=== PATIENT | male | born 1960 | race Caucasian/White ===

== ENCOUNTER 2018-11-30 09:16 | Emergency (ER) | payer MEDICAID | END 2018-11-30 10:20 | disposition left against medical advice (07) | LOC: JD.ED 09:16 | DX: Z53.21 Procedure and treatment not carried out due to patient leaving prior to being seen by health care provider (principal) ==

== ENCOUNTER 2019-01-10 06:16 | Emergency (ER) | payer MEDICAID ==
[2019-01-10] MEDS ORDERED: Sodium Chloride 0.9% 10 ML Syringe FLUSH PRN ×2 (07:12→07:20)
[2019-01-10] MEDS ORDERED: Iopamidol 612 MG/ML 50 ML SDV IVPUSH ONE (07:20)
[2019-01-10] MEDS ORDERED: Acetaminophen 325 MG Tab PO ONE (07:21)
--- NOTE | 2019-01-10 08:05 | CT ---
Head CT Technique: Multiple axial sections through the brain were obtained. Intravenous contrast was not utilized. Comparison: No previous intracranial imaging is seen. Findings: Ventricles along with basal cisterns and sulci over the convexities are mildly prominent. No abnormal parenchymal densities are seen. No evidence of intracranial hemorrhage. No midline shift or mass effect is seen. Bone window settings were reviewed which shows mild mucosal thickening within right sphenoid sinus as well as probable retention cyst within the right sphenoid sinus measuring 1.7 cm. This is most likely chronic. No air-fluid level seen within the paranasal sinuses. No acute calvarial abnormality is seen. Impression: 1. Findings within the right sphenoid sinus as noted above most likely representing chronic sinusitis. 2. Mild generalized atrophy. 3. No acute intracranial abnormality is appreciated. Diagnostic code #2
--- NOTE | 2019-01-10 08:05 | CT ---
CT facial bones Technique: Multiple axial sections were obtained centered to the orbits. Intravenous contrast was utilized. Findings: Right and left globes are symmetric. Extraocular muscles are symmetric. Optic nerves are also symmetric. No retrobulbar are abnormality is seen. Lacrimal glands are symmetric in size between right and left sides. Mild areas of mucosal thickening are seen within the right and left inferior maxillary sinuses. Probable retention cyst is noted within the inferior left maxillary sinus measuring 1.5 cm. Mild mucosal thickening is seen within the right sphenoid sinus with probable retention cyst. Mastoid sinuses are clear. No fluid is seen within the paranasal sinuses. No adenopathy is appreciated. No acute fracture or other bony abnormality is appreciated. Impression: 1. Chronic appearing sinus findings as described above. 2. Nothing acute is appreciated on CT study of the facial bones. Diagnostic code #2
--- NOTE | 2019-01-10 09:17 | EDM.PDOC ---
ED HPI GENERAL MEDICAL PROBLEM - General Chief Complaint: Eye Problems Stated Complaint: R EYE PAIN Time Seen by Provider: 01/10/19 06:57 Source of Information: Reports: Patient, RN Notes Reviewed - History of Present Illness INITIAL COMMENTS - FREE TEXT/NARRATIVE: 58 year old male with Vazquez and R retroorbital eye discomfort that started 2 days ago, awakened him early this morning from sleep. No nausea or vomiting. Has not been ill in any way. He does have light sensitivity R eye. Did take some ibuprofen a few hrs ago but states it did not help much. Does not feel he has has gotten anything into the eye. Does not regularly get headaches. Right Eye Pain Score (Numeric/FACES): 7 - Related Data Allergies Allergy/AdvReac Type Severity Reaction Status Date / Time No Known Allergies Allergy Verified 11/30/18 09:43 Home Meds: Home Meds Allopurinol [Zyloprim] 300 mg PO DAILY 08/09/18 [History] Atenolol 50 mg PO DAILY 08/09/18 [History] ClonazePAM [KlonoPIN] 0.5 mg PO BID 08/09/18 [History] Itraconazole 100 mg PO DAILY 08/09/18 [History] Lisinopril 40 mg PO DAILY 08/09/18 [History] Venlafaxine [Effexor XR] 150 mg PO DAILY 08/09/18 [History] traZODone HCl [Trazodone HCl] 100 mg PO BEDTIME 08/09/18 [History] valACYclovir HCl [Valtrex] 500 mg PO BID PRN 08/09/18 [History] Sennosides [Senna] 8.6 mg PO BID PRN tablet 08/10/18 [Rx] Cephalexin [Keflex] 500 mg PO Q6HR #30 capsule 01/10/19 [Rx] Past Medical History HEENT History: Reports: Impaired Vision Cardiovascular History: Reports: High Cholesterol, Hypertension Other Cardiovascular History: high cholesterol Respiratory History: Reports: None Gastrointestinal History: Reports: Chronic Constipation, Hemorrhoids Other Gastrointestinal History: left inguinal hernia Genitourinary History: Reports: Other (See Below) Other Genitourinary History: erectle dysfunction INFORMATION TECH History: Reports: None Other Musculoskeletal History: right hand sprain, hand fracture right Neurological History: Reports: Other (See Below) Other Neuro History: tremor hands Psychiatric History: Reports: Anxiety, Depression Other Psychiatric History: insomnia Endocrine/Metabolic History: Reports: Obesity/BMI 30+ Hematologic History: Reports: None Immunologic History: Reports: None Oncologic (Cancer) History: Reports: None Dermatologic History: Reports: Other (See Below) Other Dermatologic History: herpes, mucous cyst to finger x3, seborrheic keratosis- feet - Infectious Disease History Infectious Disease History: Reports: Herpes - Past Surgical History Head Surgeries/Procedures: Reports: None Cardiovascular Surgical History: Reports: None Respiratory Surgical History: Reports: None GI Surgical History: Reports: Colonoscopy Other GI Surgeries/Procedures: GERD sx Male Surgical History: Reports: None Endocrine Surgical History: Reports: None Neurological Surgical History: Reports: None Musculoskeletal Surgical History: Reports: Carpal Tunnel, Hip Replacement, Other (See Below) Other Musculoskeletal Surgeries/Procedures:: torn ligament repair R hand 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 Denies: Dizziness, Numbness, Tingling, Trouble Speaking, Difficulty Walking, Weakness ED EXAM GENERAL W FULL EYE - Physical Exam Exam: See Below General Appearance: Alert, No Apparent Distress Visual Acuity (R) 20/: 40 Visual Acuity (L) 20/: 25 Eyelids: Bilateral: Normal Appearance Conjunctiva & Sclera: Bilateral: Normal Appearance, Other (no foreign body visible) Cornea Exam: Bilateral: Normal Appearance Extraocular Movements: Bilateral: Intact Pupillary Reaction: Bilateral: Brisk Anterior Chamber: Bilateral: Normal Appearance Ears: Normal External Exam, Normal TMs Nose: Normal Inspection Throat/Mouth: Normal Inspection Head: Atraumatic. No: Facial Swelling Neck: Supple, Full Range of Motion. No: Lymphadenopathy (L), Lymphadenopathy (R ) Respiratory/Chest: No Respiratory Distress, Lungs Clear Cardiovascular: Regular Rate, Rhythm Neurological: Alert, Oriented, No Motor/Sensory Deficits Skin Exam: Warm, Dry, Normal Color, No Rash Course - Vital Signs Last Recorded V/S: Last Vital Signs Temp 96.2 F 01/10/19 06:22 Pulse 55 L 01/10/19 06:22 Resp 16 01/10/19 06:22 BP 144/101 H 01/10/19 06:22 Pulse Ox 100 01/10/19 06:22 - Orders/Labs/Meds Orders: Active Orders 24 hr Category Date Time Status Peripheral IV Care [RC] . DIRECTED Care 01/10/19 07:12 Active Peripheral IV Insertion Adult [OM.PC] Stat Oth 01/10/19 07:12 Ordered Labs: Laboratory Tests 01/10/19 01/10/19 Range/Units 07:21 07:21 WBC 7.79 (4.23-9.07) K/mm3 RBC 5.13 (4.63-6.08) M/mm3 Hgb 14.2 D (13.7-17.5) gm/L Hct 41.9 (40.1-51.0) % MCV 81.7 D (79.0-92.2) fl MCH 27.7 (25.7-32.2) pg MCHC 33.9 (32.2-35.5) g/dl RDW Std Deviation 42.4 (35.1-43.9) fL Plt Count 216 (163-337) K/mm3 MPV 9.3 L (9.4-12.3) fl Neut % (Auto) 54.4 (34.0-67.9) % Lymph % (Auto) 33.4 (21.8-53.1) % Dare % (Auto) 7.7 (5.3-12.2) % Eos % (Auto) 3.6 (0.8-7.0) Baso % (Auto) 0.4 (0.1-1.2) % Neut # (Auto) 4.24 (1.78-5.38) K/mm3 Lymph # (Auto) 2.60 (1.32-3.57) K/mm3 Dare # (Auto) 0.60 (0.30-0.82) K/mm3 Eos # (Auto) 0.28 (0.04-0.54) K/mm3 Baso # (Auto) 0.03 (0.01-0.08) K/mm3 Sodium 139 (136-145) mEq/L Potassium 4.0 (3.5-5.1) mEq/L Chloride 105 (98-107) mEq/L Carbon Dioxide 24 (21-32) mEq/L Anion Gap 14.0 (5-15) BUN 17 (7-18) mg/dL Creatinine 1.1 (0.7-1.3) mg/dL Est Cr Clr Drug Dosing 73.74 mL/min Estimated GFR (MDRD) > 60 (>60) mL/min BUN/Creatinine Ratio 15.5 (14-18) Glucose 117 H (74-106) mg/dL Calcium 8.5 (8.5-10.1) mg/dL Total Bilirubin 0.6 (0.2-1.0) mg/dL AST 18 (15-37) U/L ALT 26 (16-63) U/L Alkaline Phosphatase 106 (46-116) U/L Total Protein 6.8 (6.4-8.2) g/dl Albumin 3.7 (3.4-5.0) g/dl Globulin 3.1 gm/dL Albumin/Globulin Ratio 1.2 (1-2) Meds: Medications Discontinued Medications Generic Name Dose Route Start Last Admin Trade Name Freq PRN Reason Stop Dose Admin Acetaminophen 975 mg 01/10/19 07:21 01/10/19 07:25 Tylenol PO 01/10/19 07:22 975 mg NOW ONE Administration Iopamidol 50 ml 01/10/19 07:20 01/10/19 07:37 Isovue-300 (61%) IVPUSH 01/10/19 07:21 50 ml ONETIME ONE Administration Sodium Chloride 10 ml 01/10/19 07:12 01/10/19 07:20 Saline Flush FLUSH 10 ml ASDIRECTED PRN Administration Keep Vein Open Sodium Chloride 10 ml 01/10/19 07:20 01/10/19 07:38 Saline Flush FLUSH 10 ml ONETIME PRN Administration IV FLUSH - Re-Assessments/Exams Free Text/Narrative Re-Assessment/Exam: 01/10/19 09:11 His headache and eye discomfort is gone. The last 2 times I walked into the room he has been sleeping. Slit lamp exam does look nl. Unable to get a reading on pressure, glaucoma, iritis a consideration but his eye is not red or angry looking. Pupils are both midsize equal and reactive as documented. Vision is down just slightly on the right 20/40 compared to 20/25 on the left. He was mainly worried about a tumor or something of that nature. Head CT is fine. Head CT of the orbits does not show anything pathologic associated with the orbits. He does have some chronic sinus findings bilateral. I was going to get him an emergent appointment to see optometry today but he doesn't want to wait any longer to go home. He states his eye pain is gone. He will see an eye doctor as soon as possible. He states he needs to get some rest and then get down in [place] appointment tomorrow. Discharge instructions as documented. Departure - Departure Time of Disposition: 09:16 Disposition: Home, Self-Care 01 Condition: Fair Clinical Impression: Discomfort of right eye Headache Qualifiers: Headache type: unspecified Headache chronicity pattern: acute headache Intractability: not intractable Qualified Code(s): R51 - Headache Sinusitis Qualifiers: Sinusitis location: unspecified location Chronicity: unspecified Qualified Code (s): J32.9 - Chronic sinusitis, unspecified - Discharge Information Prescriptions: Cephalexin [Keflex] 500 mg PO Q6HR #30 capsule Instructions: General Headache Without Cause, Sinusitis, Adult, [id number] Referrals: Zarina Rodriguez MD [Primary Care Provider] - Forms: ED Department Discharge Additional Instructions: You may continue to alternate Tylenol and ibuprofen if needed for further eye discomfort or headache. Cephalexin antibiotic 500 mg 4 times daily until gone. Prescription has been sent electronically to the medicine shop. See eye doctor emergently if your right eye discomfort and headache come back same day or as soon as possible. I strongly do recommend you see an eye doctor some time this week or early next week for a complete eye exam with consideration of the symptoms you have had the last 2 days. Return to ED as needed if symptoms worsening in any way. - My Orders Last 24 Hours: My Active Orders 01/10/19 07:12 Peripheral IV Care [RC] . DIRECTED Peripheral IV Insertion Adult [OM.PC] Stat - Assessment/Plan Last 24 Hours: My Active Orders 01/10/19 07:12 Peripheral IV Care [RC] . DIRECTED Peripheral IV Insertion Adult [OM.PC] Stat
== END 2019-01-10 09:30 | disposition home or self-care (01) ==
LOC: JD.ED 06:16
DX: H57.89 Other specified disorders of eye and adnexa (principal); J32.9 Chronic sinusitis, unspecified; I10 Essential (primary) hypertension; E78.00 Pure hypercholesterolemia, unspecified; F41.9 Anxiety disorder, unspecified; F32.9 Major depressive disorder, single episode, unspecified; Z79.899 Other long term (current) drug therapy
CPT/HCPCS: 36415; 70450; 70481; 80053; 85025; 99283; A9270; Q9967

== ENCOUNTER 2019-04-09 16:06 | Emergency (ER) | payer MEDICAID ==
--- NOTE | 2019-04-09 16:48 | EDM.PDOC ---
ED HPI GENERAL MEDICAL PROBLEM - General Chief Complaint: Abdominal Pain Stated Complaint: LEFT SIDE PAIN Time Seen by Provider: 04/09/19 16:47 Source of Information: Reports: Patient History Limitations: Reports: No Limitations - History of Present Illness INITIAL COMMENTS - FREE TEXT/NARRATIVE: 59-year-old male attends the ED with diffuse left lateral upper abdominal jeanmarie He's able to localize the pain very well and make it worse by pushing on the area. This started gradually over the last 2 days but is much worse today. He doesn't recognize any specific injuries that would've injured his abdominal wall. He does have a right hip surgery done in July and still not getting around very well. States he has to get into all kinds of [place] he positions to get out of bed including the trapezius to help pull them up. Likely that he has strained his abdominal wall from these activities. States his bowels for the most part have been working okay. Doesn't it hurts to breathe deeply hurts to cough sneeze or even stand fully erect. Most the pain is trying to get up from the seated or lying position. l Onset: Gradual Onset Date: 04/07/19 Duration: Day(s): (It was very mild 2 days ago little worse yesterday and severe today.), Constant, Getting Worse Location: Reports: Chest (Pain to palpation particularly over ribs 9 and 10 in the mid axillary line), Abdomen (Left lateral upper abdominal and lower chest wall.) Quality: Reports: Ache, Sharp, Stabbing Severity: Severe Improves with: Reports: Rest Worsens with: Reports: Other, Movement (Coughing sneezing deep breathing and movement particularly getting up from this lying down or seated position.) Context: Denies: Activity, Exercise, Lifting, Sick Contact, Trauma, Other Associated Symptoms: Reports: No Other Symptoms, Chest Pain (Left lower ribs are tender mid axillary line), Loss of Appetite, Malaise. Denies: Cough, cough w sputum, Diaphoresis, Fever/Chills, Headaches, Nausea/Vomiting, Rash, Seizure, Shortness of Breath, Syncope, Weakness Treatments TRUMPET PLAYER: Reports: Other (see below) (None.) Left Upper Abdomen Pain Score (Numeric/FACES): 5 - Related Data Allergies Allergy/AdvReac Type Severity Reaction Status Date / Time No Known Allergies Allergy Verified 04/09/19 16:30 Home Meds: Home Meds Allopurinol [Zyloprim] 300 mg PO DAILY 08/09/18 [History] Atenolol 50 mg PO DAILY 08/09/18 [History] ClonazePAM [KlonoPIN] 0.5 mg PO TID 08/09/18 [History] Itraconazole 100 mg PO DAILY 08/09/18 [History] Lisinopril 40 mg PO DAILY 08/09/18 [History] Venlafaxine [Effexor XR] 150 mg PO DAILY 08/09/18 [History] traZODone HCl [Trazodone HCl] 100 mg PO BEDTIME 08/09/18 [History] valACYclovir HCl [Valtrex] 500 mg PO BID PRN 08/09/18 [History] Amitriptyline HCl 75 mg PO BEDTIME 04/09/19 [History] Diclofenac Sodium [Voltaren] 50 mg PO TID #24 tab.ec 04/09/19 [Rx] Indomethacin 50 mg PO BID 04/09/19 [History] Terbinafine [LamISIL] 250 mg PO DAILY 04/09/19 [History] Topiramate 50 mg PO DAILY 04/09/19 [History] cloNIDine [Catapres] 0.1 mg PO BEDTIME 04/09/19 [History] hydrOXYzine HCl [Atarax] 25 mg PO BEDTIME 04/09/19 [History] oxyCODONE HCl/Acetaminophen [Percocet 5-325 mg Tablet] 1 - 2 each PO Q4H PRN # 24 tablet 04/09/19 [Rx] predniSONE [Deltasone] 20 mg PO ASDIRECTED #15 tablet 04/09/19 [Rx] Past Medical History HEENT History: Reports: Impaired Vision Cardiovascular History: Reports: High Cholesterol, Hypertension Other Cardiovascular History: high cholesterol Respiratory History: Reports: None Gastrointestinal History: Reports: Chronic Constipation, Hemorrhoids Other Gastrointestinal History: left inguinal hernia Genitourinary History: Reports: Renal Calculus, Other (See Below) Other Genitourinary History: erectle dysfunction ELECTROMECHANIC History: Reports: None Other Musculoskeletal History: right hand sprain, hand fracture right Neurological History: Reports: Other (See Below) Other Neuro History: tremor hands Psychiatric History: Reports: Anxiety, Depression Other Psychiatric History: insomnia Endocrine/Metabolic History: Reports: Obesity/BMI 30+ Hematologic History: Reports: None Immunologic History: Reports: None Oncologic (Cancer) History: Reports: None Dermatologic History: Reports: Other (See Below) Other Dermatologic History: herpes, mucous cyst to finger x3, seborrheic keratosis- feet - Infectious Disease History Infectious Disease History: Reports: Herpes - Past Surgical History Head Surgeries/Procedures: Reports: None Cardiovascular Surgical History: Reports: None Respiratory Surgical History: Reports: None GI Surgical History: Reports: Colonoscopy Other GI Surgeries/Procedures: GERD sx Male Surgical History: Reports: None Endocrine Surgical History: Reports: None Neurological Surgical History: Reports: None Musculoskeletal Surgical History: Reports: Carpal Tunnel, Hip Replacement, Other (See Below) Other Musculoskeletal Surgeries/Procedures:: torn ligament repair R hand Oncologic Surgical History: Reports: None Social & Family History - Family History Family Medical History: Noncontributory Other HEENT Family History: hx of cancer in family - Caffeine Use Caffeine Use: Reports: Coffee Other Caffeine Use: occasionally - Living Situation & Occupation Living situation: Reports: Other (Going through a divorce at this point time) 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 Denies : Fever, Chills HEENT: Reports: No Symptoms Respiratory: Reports: Shortness of Breath. Denies: Wheezing, Pleuritic Chest Pain, Cough, Sputum Cardiovascular: Reports: Chest Pain, Blood Pressure Problem (Left lateral lower chest pain over ribs 9 and 10.). Denies: Claudication, Dyspnea on Exertion, Edema, Lightheadedness, Orthopnea, Palpitations Endocrine: Reports: Fatigue GI/Abdominal: Reports: Abdominal Pain (Left upper abdominal pain midaxillary and anterior axillary line in the distribution of the external oblique muscles on exam.) : Reports: Frequency, Other Musculoskeletal: Reports: Other (Known BPH. Has pain in his left hamstring tendons which she strained and is in physiotherapy for this. Still has a lot of joint pain. A lot of groin pain in his right hip as well.) Skin: Reports: No Symptoms Neurological: Reports: No Symptoms, Gait Disturbance Psychiatric: Reports: Anxiety (In his insomnia), Depression, Other ED EXAM, GI/ABD - Physical Exam Exam: See Below Exam Limited By: No Limitations General Appearance: Alert, WD/WN, Moderate Distress (Appears anxious and appears to be a good deal of pain.) Eyes: Bilateral: Normal Appearance Throat/Mouth: Normal Inspection, Normal Lips, Normal Oropharynx Head: Atraumatic, Normocephalic Neck: Normal Inspection, Supple, Non-Tender, Full Range of Motion. No: Lymphadenopathy (L), Lymphadenopathy (R) Respiratory/Chest: No Respiratory Distress, Lungs Clear, Normal Breath Sounds, No Accessory Muscle Use, Other (Patient does have chest wall tenderness on palpation particularly of ribs 910 mid axillary line and anterior axillary line on the left side. He has exquisite pain well localized to the inferior portion of the 10th rib mid axillary line in the distribution of the external oblique musculature. Does not cross the midline. It is made worse by deep palpation coughing and when I try and set him up or put his chin on his chest position and tightened the muscles it makes the pain much worse. This strongly indicates this is chest wall in origin.) Cardiovascular: Regular Rate, Rhythm, No Edema, No Gallop, No Murmur, No Rub GI/Abdominal Exam: Normal Bowel Sounds, Soft, Tender (Visit tenderness throughout the distribution of the external oblique muscle left upper lateral abdominal wall in the midaxillary line and the anterior axillary line and along ribs 9 and 10 particularly. Distribution of the external oblique and appears to be a muscular strain. His abdomen is grossly obese and firmly distended placing him at high risk of muscle tear.) Back Exam: Normal Inspection, Full Range of Motion. No: CVA Tenderness (L), CVA Tenderness (R) Extremities: Other (Limited range of motion of his right hip due to total hip replacement.) Neurological: Alert, Oriented, CN II-XII Intact, Normal Cognition Psychiatric: Anxious, Tearful Skin Exam: Warm, Dry, Intact (Tearful at times), Normal Color, No Rash Course - Vital Signs Last Recorded V/S: Last Vital Signs Temp 36.7 C 04/09/19 16:30 Pulse 76 04/09/19 16:30 Resp 18 04/09/19 16:30 BP 133/93 H 04/09/19 16:30 Pulse Ox 99 04/09/19 16:30 - Orders/Labs/Meds Orders: Active Orders 24 hr Category Date Time Status Abdomen 1V Flat [CR] Stat Exams 04/09/19 17:06 Taken Meds: Medications Discontinued Medications Generic Name Dose Route Start Last Admin Trade Name Tori PRN Reason Stop Dose Admin Magnesium Citrate 210 ml 04/09/19 17:51 04/09/19 18:04 Citrate Of Magnesia PO 04/09/19 17:52 210 ml ONETIME ONE Administration - Radiology Interpretation Free Text/Narrative:: 59-year-old male presents to the ED with diffuse left upper abdominal pain along ribs 910 and upper abdominal wall in the mid and anterior axillary line. There is point tenderness on very minimal palpation of this area indicating abdominal wall origin. The pain is worsened by trying to stretch out this area or placing his chin on his chest position and tightening of the muscles. His abdomen is obese and firm to palpation placing him at risk of muscle tear in the distribution of the external oblique was which is attached to his lower 6 ribs. X-rays abdomen just to see how he has a significant amount of constipation due to his medications. - Re-Assessments/Exams Free Text/Narrative Re-Assessment/Exam: 04/09/19 17:50: The KUB reveals abdominal distention with air particularly in the left upper quadrant in the distribution of the stomach. The left descending colon is stool-filled. I don't think is causing any of his current pain syndrome. His pain is sharp and stabbing and intermittent with deep breathing and moving. Plan I'm going to send him home on magnesium citrate 7 ounces mixed with 6 ounces of juice to provide bowel cleanse. A bit of his current pain syndrome is time to heal. Him on Voltaren 50 mg 3 times daily for the next 8 days. Deltasone 20 mg twice daily for 5 days then once in the morning only for another 5 days. Percocet tabs 5/325 mg one or 2 every 4-6 hours for pain relief for the next 3-4 days. He is to expect 7-10 days before this pain completely resolves. He will follow-up with his personal care provider if any further problems occur. Departure - Departure Time of Disposition: 17:52 Disposition: Home, Self-Care 01 Condition: Fair Clinical Impression: Constipation by delayed colonic transit Abdominal muscle strain Qualifiers: Encounter type: initial encounter Qualified Code(s): S39.011A - Strain of muscle, fascia and tendon of abdomen, initial encounter - Discharge Information *PRESCRIPTION DRUG MONITORING PROGRAM REVIEWED*: Not Applicable *COPY OF PRESCRIPTION DRUG MONITORING REPORT IN PATIENT LUIS: Not Applicable Prescriptions: Diclofenac Sodium [Voltaren] 50 mg PO TID #24 tab.ec oxyCODONE HCl/Acetaminophen [Percocet 5-325 mg Tablet] 1 - 2 each PO Q4H PRN # 24 tablet PRN Reason: pain relief. predniSONE [Deltasone] 20 mg PO ASDIRECTED #15 tablet Instructions: Constipation, Adult Referrals: Zarina Rodriguez MD [Primary Care Provider] - Forms: ED Department Discharge Additional Instructions: Evaluation the emergency room today in regards to development of severe left upper posterior lateral abdominal wall pain. Pain is particularly notable to light touch along the lower ribs on the left side i.e. ribs 9 and 10. Examination reveals that this is due to a strain of the external oblique muscles which come off the lower 6 ribs inform part of the abdominal wall. It is likely that the movements that you have to get through to get out of bed due to your right hip pain and problems has likely strain the abdominal wall. This may well but occurred 2-3 days ago without to even knowing it. Then gradually small amount of bleeding occurs and of the muscles and creates tremendous amount of pain 2 days later. It will hurt to breathe deep cough or sneeze. Certain movements will cause exquisite spasm or pain in this area. X-ray of the abdomen and lower chest reveals no fractures in the ribs. The lungs are clear. There is increased stool throughout the left hemicolon [place] with mild constipation. This is going to take about 7-12 days to heal up. Suggest treatment with Percocet tabs 5/325 mg one or 2 every 4-6 hours as needed for pain relief for the next 3-4 days. Voltaren 50 mg 3 times daily for 8 days to relieve pain and inflammation usually taken with food. Is on 20 mg with breakfast and supper for 5 days then once in the morning for another 5 days to relieve pain and inflammation. S using Citroma either tonight or first thing tomorrow morning 7 ounces mixed with 6 ounces of juice of choice to get her bowels moving as the pain medicine will cause bowel to slow down and aggravate current constipation problems. Event constipation from occurring suggest MiraLAX 17 g 1 packet or 1 scoop daily to prevent constipation from occurring while on the pain medicine occasions. Expect gradual improvement in symptoms over the next 7-12 days - My Orders Last 24 Hours: My Active Orders 04/09/19 17:06 Abdomen 1V Flat [CR] Stat - Assessment/Plan Last 24 Hours: My Active Orders 04/09/19 17:06 Abdomen 1V Flat [CR] Stat
[2019-04-09] MEDS ORDERED: Magnesium Citrate Solution 296 ML Bottle PO ONE (17:51)
--- NOTE | 2019-04-10 07:06 | CR ---
Abdomen: Supine view of the abdomen was obtained. Comparison: No prior abdominal x-ray. Findings: Right hip prosthesis is seen. Moderate superior joint space narrowing is noted within the left hip. Scattered degenerative endplate spurring and disc space narrowing is noted within the spine. Bowel gas pattern is normal. No abnormal calcifications or soft tissue abnormality seen. Surgical clips are noted at the gastroesophageal junction. Impression: 1. Incidental findings as noted above. Nothing acute is appreciated on supine abdominal x-ray. Diagnostic code #2
== END 2019-04-09 18:08 | disposition home or self-care (01) ==
LOC: JD.ED 16:06
DX: S39.011A Strain of muscle, fascia and tendon of abdomen, initial encounter (principal); K59.01 Slow transit constipation; I10 Essential (primary) hypertension; E78.00 Pure hypercholesterolemia, unspecified; F41.9 Anxiety disorder, unspecified; F32.9 Major depressive disorder, single episode, unspecified; E66.9 Obesity, unspecified; Z68.1 Body mass index [BMI] 19.9 or less, adult; Z79.899 Other long term (current) drug therapy; X58.XXXA Exposure to other specified factors, initial encounter
CPT/HCPCS: 74018; 99284; A9270; 99283

== ENCOUNTER 2019-07-09 12:33 | Emergency (ER) | payer MEDICAID ==
--- NOTE | 2019-07-09 14:09 | CR ---
Right thumb: Four views of the right thumb were obtained. Comparison: No prior hand or thumb study. Joint spaces are fairly well-preserved. Soft tissue swelling is noted. No focal erosions are seen. No fracture or other bony abnormality is seen. Impression: 1. Soft tissue swelling. 2. No acute bony abnormality is seen. Diagnostic code #2 This report was dictated in [place] Standard Time
[2019-07-09] MEDS: Lidocaine 4% Crm 5 Gm with Transparent Dressing Kit ONE ×2 (14:47→15:08)
[2019-07-09] MEDS: Lidocaine 4% Top Soln LTA 4 ML Syringe Kit TOP ONE ×2 (14:47→15:19)
[2019-07-09] MEDS ORDERED: Lidocaine 1% 10 ML MDV INJECT ONE (15:01)
--- NOTE | 2019-07-09 15:08 | EDM.PDOC ---
ED HPI GENERAL MEDICAL PROBLEM - General Chief Complaint: Skin Complaint Stated Complaint: R THUMB CYST CAUSING PAIN Time Seen by Provider: 07/09/19 13:15 Source of Information: Reports: Patient History Limitations: Reports: No Limitations - History of Present Illness INITIAL COMMENTS - FREE TEXT/NARRATIVE: The patient presents with an abscess to the right thumb. The patient says this is the 4th time he had an abscess to the thumb. The 1st time was a few years ago and other fingers on the left hand were involved and they all had to be opened up. His right thumb is the only one that comes back. This is the 4th time this has happened. The last time Dr Cadena drained it and injected something in it that was painful. He denies a fever or chills. He does have pain and swelling to the entire thumb. He has no numbness. He is right handed and his tetanus is up to date. He has tried opening it up and draining it himself. Onset: Gradual Duration: Day(s): Location: Reports: Upper Extremity, Right (thumb) Quality: Reports: Sharp Severity: Moderate Improves with: Reports: None Worsens with: Reports: None Associated Symptoms: Reports: No Other Symptoms Right Finger-Thumb Pain Score (Numeric/FACES): 8 - Related Data Allergies Allergy/AdvReac Type Severity Reaction Status Date / Time No Known Allergies Allergy Verified 07/09/19 12:41 Home Meds: Home Meds ClonazePAM [KlonoPIN] 0.5 mg PO TID 08/09/18 [History] Lisinopril 40 mg PO DAILY 08/09/18 [History] Venlafaxine [Effexor XR] 150 mg PO DAILY 08/09/18 [History] allopurinoL [Zyloprim] 300 mg PO DAILY 08/09/18 [History] atenoloL [Atenolol] 50 mg PO DAILY 08/09/18 [History] valACYclovir HCl [Valtrex] 500 mg PO BID PRN 08/09/18 [History] Amitriptyline HCl 75 mg PO BEDTIME 04/09/19 [History] Indomethacin 50 mg PO BID 04/09/19 [History] cloNIDine [Catapres] 0.1 mg PO BEDTIME 04/09/19 [History] hydrOXYzine HCL [Atarax] 25 mg PO BEDTIME 04/09/19 [History] oxyCODONE HCl/Acetaminophen [Percocet 5-325 mg Tablet] 1 - 2 each PO Q4H PRN # 24 tablet 04/09/19 [Rx] Clindamycin HCl 450 mg PO TID #60 capsule 07/09/19 [Rx] Hydrocodone/Acetaminophen [Hydrocodon-Acetaminophen 5-325] 1 - 2 each PO Q6HR PRN #20 tablet 07/09/19 [Rx] Past Medical History HEENT History: Reports: Impaired Vision Cardiovascular History: Reports: High Cholesterol, Hypertension Other Cardiovascular History: high cholesterol Respiratory History: Reports: None Gastrointestinal History: Reports: Chronic Constipation, Hemorrhoids Other Gastrointestinal History: left inguinal hernia Genitourinary History: Reports: Renal Calculus, Other (See Below) Other Genitourinary History: erectle dysfunction WHITE SPOOLER History: 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: 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 Other Musculoskeletal History: right hand sprain, hand fracture right Neurological History: Reports: Other (See Below) Other Neuro History: tremor hands Psychiatric History: Reports: Anxiety, Depression Other Psychiatric History: insomnia Endocrine/Metabolic History: Reports: Obesity/BMI 30+ Hematologic History: Reports: None Immunologic History: Reports: None Oncologic (Cancer) History: Reports: None Dermatologic History: Reports: Other (See Below) Other Dermatologic History: herpes, mucous cyst to finger x3, seborrheic keratosis- feet - Infectious Disease History Infectious Disease History: Reports: Herpes - Past Surgical History Head Surgeries/Procedures: Reports: None Cardiovascular Surgical History: Reports: None Respiratory Surgical History: Reports: None GI Surgical History: Reports: Colonoscopy Other GI Surgeries/Procedures: Pt had a surgery to relieve GERD symptoms in 1989. "Tube tied around stomach to stop it from splashing up." Male Surgical History: Reports: None Endocrine Surgical History: Reports: None Neurological Surgical History: Reports: None Musculoskeletal Surgical History: Reports: Carpal Tunnel, Hip Replacement, Other (See Below) Other Musculoskeletal Surgeries/Procedures:: torn ligament repair R hand. Surgeries to remove cysts on bilateral hands. 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) ED ROS GENERAL - Review of Systems Review Of Systems: See Below Constitutional: Reports: No Symptoms HEENT: Reports: No Symptoms Respiratory: Reports: No Symptoms Cardiovascular: Reports: No Symptoms Endocrine: Reports: No Symptoms GI/Abdominal: Reports: No Symptoms : Reports: No Symptoms Musculoskeletal: Reports: Other (Right thumb tenderness pain and an abscess) ED EXAM, SKIN/RASH Exam: See Below Exam Limited By: No Limitations General Appearance: Alert, No Apparent Distress Ears: Normal External Exam Nose: Normal Inspection Head: Atraumatic, Normocephalic Neck: Normal Inspection Respiratory/Chest: No Respiratory Distress Extremities: Other (Moderate swelling of the right thumb with erythema and an abscess) ED SKIN PROCEDURES - I&D Site: Right thumb Skin Prep: Chlorhexidine (Hibiciens) Local Anesthesia: Lidocaine: 1% Plain (and EMLA) Area Incised With: 11 Blade Drainage: Purulent, Moderate Amount Probed to Break Up Loculations: Yes Complications: No Course - Vital Signs Last Recorded V/S: Last Vital Signs Temp 97.5 F 07/09/19 12:37 Pulse 57 L 07/09/19 12:37 Resp 16 07/09/19 12:37 BP 135/90 07/09/19 12:37 Pulse Ox 100 07/09/19 12:37 - Orders/Labs/Meds Labs: Laboratory Tests 07/09/19 07/09/19 Range/Units 13:44 13:44 WBC 8.73 (4.23-9.07) K/mm3 RBC 5.09 (4.63-6.08) M/mm3 Hgb 14.6 (13.7-17.5) gm/dl Hct 42.6 (40.1-51.0) % MCV 83.7 (79.0-92.2) fl MCH 28.7 (25.7-32.2) pg MCHC 34.3 (32.2-35.5) g/dl RDW Std Deviation 42.3 (35.1-43.9) fL Plt Count 236 (163-337) K/mm3 MPV 9.3 L (9.4-12.3) fl Neut % (Auto) 61.5 (34.0-67.9) % Lymph % (Auto) 26.6 (21.8-53.1) % Burke % (Auto) 8.1 (5.3-12.2) % Eos % (Auto) 2.7 (0.8-7.0) Baso % (Auto) 0.3 (0.1-1.2) % Neut # (Auto) 5.36 (1.78-5.38) K/mm3 Lymph # (Auto) 2.32 (1.32-3.57) K/mm3 Burke # (Auto) 0.71 (0.30-0.82) K/mm3 Eos # (Auto) 0.24 (0.04-0.54) K/mm3 Baso # (Auto) 0.03 (0.01-0.08) K/mm3 C-Reactive Protein 4.8 H* (<1.0) mg/dL Meds: Medications Discontinued Medications Generic Name Dose Route Start Last Admin Trade Name Freq PRN Reason Stop Dose Admin Lidocaine 4 ml 07/09/19 14:07 07/09/19 15:19 Lta 360 Kit Top Soln TOP 07/09/19 14:08 Not Given ONETIME ONE Lidocaine HCl Confirm 07/09/19 14:45 07/09/19 14:47 Lmx 4 Cream With Tegaderm Administered 07/09/19 14:46 1 dose Dose Administration 1 each .ROUTE .STK-MED ONE Lidocaine HCl 10 ml 07/09/19 15:01 07/09/19 15:19 Xylocaine 1% INJECT 07/09/19 15:02 10 ml ONETIME ONE Administration - Re-Assessments/Exams Free Text/Narrative Re-Assessment/Exam: 07/09/19 15:08 The x-ray shows soft tissue swelling. His CBC looks good. His CRP was elevated at 4.8. I put some EMLA on the abscess and I will open up the abscess. 07/09/19 15:51 I opened up the abscess and drained moderate amount. He does admit to chewing on his nails. 07/09/19 15:53 I will get him on some clindamycin and something for pain. I did obtain cultures. Departure - Departure Time of Disposition: 15:55 Disposition: Home, Self-Care 01 Condition: Good Clinical Impression: Abscess - Discharge Information *PRESCRIPTION DRUG MONITORING PROGRAM REVIEWED*: Not Applicable *COPY OF PRESCRIPTION DRUG MONITORING REPORT IN PATIENT LUIS: Not Applicable Prescriptions: Hydrocodone/Acetaminophen [Hydrocodon-Acetaminophen 5-325] 1 - 2 each PO Q6HR PRN #20 tablet PRN Reason: Pain Clindamycin HCl 450 mg PO TID #60 capsule Referrals: Zarina Rodriguez MD [Primary Care Provider] - Blayne Cadena MD [Physician] - 1 Week Forms: ED Department Discharge Additional Instructions: Take the clindamycin 1 1/2 pills by mouth 4 times per day for 10 days. Soak your thumb in warm soapy water 2 times per day and apply antibiotic ointment after. Wear the splint for a week. Take motrin or tylenol for pain. If that does not work, take the hydrocodone. Follow up with Dr Cadena within a week. Please return if you are worse. Sepsis Event Note - Evaluation Sepsis Screening Result: No Definite Risk - Focused Exam Vital Signs: Vital Signs Temp Pulse Resp BP Pulse Ox 07/09/19 12:37 97.5 F 57 L 16 135/90 100 Date Exam was Performed: 07/09/19 Time Exam was Performed: 15:49
[2019-07-09] MEDS ORDERED: Diphtheria,Pertussis(Acell),Tetanus Vaccine 0.5 ML Syringe IM ONE (15:50)
[2019-07-09] MEDS ORDERED: HYDROmorphone 1 MG/ML Syringe IM ONE (15:50)
[2019-07-09] MEDS ORDERED: cefTRIAXone 1 GM, Lidocaine 1% 2.1 ML IM SCH ×2 (16:00)
== END 2019-07-09 16:25 | disposition home or self-care (01) ==
LOC: JD.ED 12:33
DX: L02.511 Cutaneous abscess of right hand (principal); I10 Essential (primary) hypertension; E66.9 Obesity, unspecified; Z79.899 Other long term (current) drug therapy; Z68.37 Body mass index [BMI] 37.0-37.9, adult
CPT/HCPCS: 26010; 36415; 73140; 85025; 86140; 87075; 87077; 87181; 87184; 87205; 90471; 90715; 96372; 99283; J0696; J1170; J2001; 10060; A9270-GY

== ENCOUNTER 2019-09-07 11:43 | Emergency (ER) | payer MEDICAID ==
--- NOTE | 2019-09-07 12:39 | EDM.PDOC ---
ED HPI GENERAL MEDICAL PROBLEM - General Chief Complaint: Cardiovascular Problem Stated Complaint: HYPERTENSION Time Seen by Provider: 09/07/19 12:06 Source of Information: Reports: Patient, RN Notes Reviewed History Limitations: Reports: No Limitations - History of Present Illness INITIAL COMMENTS - FREE TEXT/NARRATIVE: Patient is a 59-year-old male who presents to the ED for the evaluation of hypertension. The patient notes that he has had a lot of increased stress in his life lately, as he states he is going through a divorce, living in a trailer , and so forth. He also notes that he has an infection in his right thumb, for which he is getting IV antibiotic therapy daily. This is directed by Dr. Cadena, and he supposed to be doing this for a few more days, until he can be seen by a different provider (Dr. Shields?). The patient's blood pressure was noted to be elevated yesterday during IV therapy, and the patient did not seek management for this. He came for IV therapy again today, his blood pressure was elevated, roughly in the 170s systolically over the one hundred teens diastolically. So he got brought to the ER for evaluation. His primary care provider is Dr. Rodriguez from [facility]. He states that he had evaluation 2 weeks ago, and everything was within normal limits. He does state that he has been having some issues with a headache for the last 2 to 3 days, he states that he has been taking some ibuprofen however this does not seem to be helping much. He is not having any blurred vision or double vision, but is complaining of what he likes to call depth perception issues, where things are closer than they actually are in space. Patient does take multiple blood pressure medications, and did take all of these as prescribed today. He also states that he takes a couple different pills at nights to sleep. He is also scheduled for a sleep study in September. He denies any shortness of breath, nausea /vomiting/diarrhea. Right Finger-Thumb Pain Score (Numeric/FACES): 5 - Related Data Allergies Allergy/AdvReac Type Severity Reaction Status Date / Time No Known Allergies Allergy Verified 07/09/19 12:41 Home Meds: Home Meds ClonazePAM [KlonoPIN] 0.5 mg PO TID 08/09/18 [History] Lisinopril 40 mg PO DAILY 08/09/18 [History] Venlafaxine [Effexor XR] 150 mg PO DAILY 08/09/18 [History] allopurinoL [Zyloprim] 300 mg PO DAILY 08/09/18 [History] Amitriptyline HCl 75 mg PO BEDTIME 04/09/19 [History] Indomethacin 50 mg PO BID 04/09/19 [History] cloNIDine [Catapres] 0.1 mg PO BEDTIME 04/09/19 [History] hydrOXYzine HCL [Atarax] 25 mg PO BEDTIME 04/09/19 [History] Metoprolol Tartrate [Lopressor] 25 mg PO Q12HR #60 tab 09/07/19 [Rx] amLODIPine Besylate [Amlodipine Besylate] 10 mg PO DAILY #30 tablet 09/07/19 [Rx ] Past Medical History HEENT History: Reports: Impaired Vision Cardiovascular History: Reports: High Cholesterol, Hypertension Other Cardiovascular History: high cholesterol Respiratory History: Reports: None Gastrointestinal History: Reports: Chronic Constipation, Hemorrhoids Other Gastrointestinal History: left inguinal hernia Genitourinary History: Reports: Renal Calculus, Other (See Below) Other Genitourinary History: erectle dysfunction DATA CAPTURE SPECIALIST History: Reports: None Other Musculoskeletal History: right hand sprain, hand fracture right Neurological History: Reports: Other (See Below) Other Neuro History: tremor hands Psychiatric History: Reports: Anxiety, Depression Other Psychiatric History: insomnia Endocrine/Metabolic History: Reports: Obesity/BMI 30+ Hematologic History: Reports: None Immunologic History: Reports: None Oncologic (Cancer) History: Reports: None Dermatologic History: Reports: Other (See Below) Other Dermatologic History: herpes, mucous cyst to finger x3, seborrheic keratosis- feet - Infectious Disease History Infectious Disease History: Reports: Herpes - Past Surgical History Head Surgeries/Procedures: Reports: None Cardiovascular Surgical History: Reports: None Respiratory Surgical History: Reports: None GI Surgical History: Reports: Colonoscopy Other GI Surgeries/Procedures: Pt had a surgery to relieve GERD symptoms in 1989. "Tube tied around stomach to stop it from splashing up." Male Surgical History: Reports: None Endocrine Surgical History: Reports: None Neurological Surgical History: Reports: None Musculoskeletal Surgical History: Reports: Carpal Tunnel, Hip Replacement, Other (See Below) Other Musculoskeletal Surgeries/Procedures:: torn ligament repair R hand. Surgeries to remove cysts on bilateral hands. Oncologic Surgical History: Reports: None Social & Family History - Family History Family Medical History: Noncontributory Other HEENT Family History: hx of cancer in family - Tobacco Use Smoking Status *Q: Never Smoker - Caffeine Use Caffeine Use: Reports: Coffee Other Caffeine Use: occasionally - Recreational Drug Use Recreational Drug Type: Reports: Marijuana/Hashish Other Recreational Drug Type: gets pain meds from someone he knows when the doctors will not give him any; does marijuana when he can find it - Living Situation & Occupation Living situation: Reports: Other (Going through a divorce at this point time) 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 Denies: Chest Pain, Lightheadedness GI/Abdominal: Denies: Abdominal Pain, Constipation, Diarrhea, Nausea, Vomiting : Denies: Dysuria, Frequency, Urgency Musculoskeletal: Denies: Arm Pain Neurological: Reports: Headache, Other (?depth perception issues) Psychiatric: Reports: Anxiety (increased stress). Denies: Depression ED EXAM, GENERAL - Physical Exam Exam: See Below Exam Limited By: No Limitations General Appearance: Alert, WD/WN, No Apparent Distress Eye Exam: Bilateral Eye: EOMI, Normal Inspection, PERRL Ears: Normal External Exam Nose: Normal Inspection Throat/Mouth: Normal Inspection, Normal Lips, Normal Teeth, Normal Gums, Normal Oropharynx, Normal Voice, No Airway Compromise Head: Atraumatic, Normocephalic Neck: Normal Inspection Respiratory/Chest: No Respiratory Distress, Lungs Clear, Normal Breath Sounds, No Accessory Muscle Use, Chest Non-Tender Cardiovascular: Normal Peripheral Pulses, Regular Rate, Rhythm, No Murmur Peripheral Pulses: 3+: Radial (L), Radial (R) GI/Abdominal: Normal Bowel Sounds, Soft, Non-Tender, No Distention, No Mass Extremities: Normal Inspection, Normal Capillary Refill Neurological: Alert, Oriented, CN II-XII Intact (grossly), Normal Cognition, No Motor/Sensory Deficits Psychiatric: Normal Affect, Normal Mood Skin Exam: Warm, Dry, Intact, Normal Color, No Rash EKG INTERPRETATION EKG Date: 09/07/19 Time: 12:41 Rhythm: NSR Rate (Beats/Min): 50 Hinckley: Normal P-Wave: Present QRS: Normal ST-T: Normal QT: Normal Comparison: NA - No Prior EKG EKG Interpretation Comments: No acute ischemic change ordered by myself or Dr. Bey. Possible Q wave in lead III. Course - Vital Signs Last Recorded V/S: Last Vital Signs Temp 98.2 F 09/07/19 11:46 Pulse 49 L 09/07/19 13:31 Resp 20 09/07/19 11:46 BP 148/111 H 09/07/19 13:31 Pulse Ox 99 09/07/19 13:31 - Orders/Labs/Meds Orders: Active Orders 24 hr Category Date Time Status EKG Documentation Completion [RC] STAT Care 09/07/19 12:23 Active Labs: Laboratory Tests 09/07/19 09/07/19 09/07/19 Range/Units 12:42 12:45 12:45 WBC 9.13 H (4.23-9.07) K/mm3 RBC 5.50 (4.63-6.08) M/mm3 Hgb 15.7 (13.7-17.5) gm/dl Hct 46.7 (40.1-51.0) % MCV 84.9 (79.0-92.2) fl MCH 28.5 (25.7-32.2) pg MCHC 33.6 (32.2-35.5) g/dl RDW Std Deviation 41.9 (35.1-43.9) fL Plt Count 254 (163-337) K/mm3 MPV 9.4 (9.4-12.3) fl Neut % (Auto) 55.3 (34.0-67.9) % Lymph % (Auto) 32.0 (21.8-53.1) % Pierce % (Auto) 8.5 (5.3-12.2) % Eos % (Auto) 3.1 (0.8-7.0) Baso % (Auto) 0.3 (0.1-1.2) % Neut # (Auto) 5.05 (1.78-5.38) K/mm3 Lymph # (Auto) 2.92 (1.32-3.57) K/mm3 Pierce # (Auto) 0.78 (0.30-0.82) K/mm3 Eos # (Auto) 0.28 (0.04-0.54) K/mm3 Baso # (Auto) 0.03 (0.01-0.08) K/mm3 Sodium 143 (136-145) mEq/L Potassium 4.3 (3.5-5.1) mEq/L Chloride 105 (98-107) mEq/L Carbon Dioxide 29 (21-32) mEq/L Anion Gap 13.3 (5-15) BUN 13 (7-18) mg/dL Creatinine 1.2 (0.7-1.3) mg/dL Est Cr Clr Drug Dosing 64.64 mL/min Estimated GFR (MDRD) > 60 (>60) mL/min BUN/Creatinine Ratio 10.8 L (14-18) Glucose 105 (80-115) mg/dL Calcium 8.6 (8.5-10.1) mg/dL Magnesium 2.2 (1.8-2.4) mg/dl Total Bilirubin 0.4 (0.2-1.0) mg/dL AST 27 (15-37) U/L ALT 40 (16-63) U/L Alkaline Phosphatase 91 (46-116) U/L Troponin I < 0.017 (0.00-0.056) ng/mL NT-Pro-B Natriuret Pep (0-125) pg/mL Total Protein 7.5 (6.4-8.2) g/dl Albumin 3.8 (3.4-5.0) g/dl Globulin 3.7 gm/dL Albumin/Globulin Ratio 1.0 (1-2) TSH 3rd Generation 1.567 (0.358-3.74) uIU/mL Urine Color Yellow (Yellow) Urine Appearance Clear (Clear) Urine pH 7.0 (5.0-8.0) Ur Specific Forbes 1.025 (1.005-1.030) Urine Protein 1+ H (Negative) Urine Glucose (UA) Negative (Negative) Urine Ketones Negative (Negative) Urine Occult Blood Negative (Negative) Urine Nitrite Negative (Negative) Urine Bilirubin Negative (Negative) Urine Urobilinogen 0.2 (0.2-1.0) Ur Leukocyte Esterase Negative (Negative) U Hyaline Cast (Auto) 0-5 (0-5) /lpf Urine RBC 0-5 (0-5) /hpf Urine WBC 0-5 (0-5) /hpf Ur Epithelial Cells 0-5 (0-5) /hpf Urine Bacteria Rare (FEW) /hpf Urine Mucus Not seen (FEW) /hpf 09/07/19 Range/Units 12:45 WBC (4.23-9.07) K/mm3 RBC (4.63-6.08) M/mm3 Hgb (13.7-17.5) gm/dl Hct (40.1-51.0) % MCV (79.0-92.2) fl MCH (25.7-32.2) pg MCHC (32.2-35.5) g/dl RDW Std Deviation (35.1-43.9) fL Plt Count (163-337) K/mm3 MPV (9.4-12.3) fl Neut % (Auto) (34.0-67.9) % Lymph % (Auto) (21.8-53.1) % Pierce % (Auto) (5.3-12.2) % Eos % (Auto) (0.8-7.0) Baso % (Auto) (0.1-1.2) % Neut # (Auto) (1.78-5.38) K/mm3 Lymph # (Auto) (1.32-3.57) K/mm3 Pierce # (Auto) (0.30-0.82) K/mm3 Eos # (Auto) (0.04-0.54) K/mm3 Baso # (Auto) (0.01-0.08) K/mm3 Sodium (136-145) mEq/L Potassium (3.5-5.1) mEq/L Chloride (98-107) mEq/L Carbon Dioxide (21-32) mEq/L Anion Gap (5-15) BUN (7-18) mg/dL Creatinine (0.7-1.3) mg/dL Est Cr Clr Drug Dosing mL/min Estimated GFR (MDRD) (>60) mL/min BUN/Creatinine Ratio (14-18) Glucose (80-115) mg/dL Calcium (8.5-10.1) mg/dL Magnesium (1.8-2.4) mg/dl Total Bilirubin (0.2-1.0) mg/dL AST (15-37) U/L ALT (16-63) U/L Alkaline Phosphatase (46-116) U/L Troponin I (0.00-0.056) ng/mL NT-Pro-B Natriuret Pep 169 H (0-125) pg/mL Total Protein (6.4-8.2) g/dl Albumin (3.4-5.0) g/dl Globulin gm/dL Albumin/Globulin Ratio (1-2) TSH 3rd Generation (0.358-3.74) uIU/mL Urine Color (Yellow) Urine Appearance (Clear) Urine pH (5.0-8.0) Ur Specific Forbes (1.005-1.030) Urine Protein (Negative) Urine Glucose (UA) (Negative) Urine Ketones (Negative) Urine Occult Blood (Negative) Urine Nitrite (Negative) Urine Bilirubin (Negative) Urine Urobilinogen (0.2-1.0) Ur Leukocyte Esterase (Negative) U Hyaline Cast (Auto) (0-5) /lpf Urine RBC (0-5) /hpf Urine WBC (0-5) /hpf Ur Epithelial Cells (0-5) /hpf Urine Bacteria (FEW) /hpf Urine Mucus (FEW) /hpf Meds: Medications Discontinued Medications Generic Name Dose Route Start Last Admin Trade Name Freq PRN Reason Stop Dose Admin Amlodipine Besylate 10 mg 09/07/19 14:24 Norvasc PO 09/07/19 14:25 ONETIME ONE Hydralazine HCl 12.5 mg 09/07/19 14:25 Apresoline PO 09/07/19 14:26 ONETIME ONE - Re-Assessments/Exams Free Text/Narrative Re-Assessment/Exam: 09/07/19 12:43 Patient presents to the ED for a couple elevated blood pressures over the last few days. Due to the patient having a headache, and these depth perception issues. I did go ahead and order a head CT for today's purposes as well as some labs to include CBC, CMP, BNP, troponin, TSH, UA, magnesium, also an EKG 09/07/19 14:31 Labs are back, and CT demonstrates no sign of any acute intracranial processes, EKG is also within normal limits. As well as the patient's labs. I will have him continue the IV antibiotics as previously directed by Dr. Cadena. I did discuss his case with Dr. Ford, hospitalist at today's visit due to his blood pressure medications and increased blood pressures. She did recommend a few changes, to taper the clonidine until he can stop taking this, switch his atenolol to metoprolol, start amlodipine, and keep a blood pressure diary. I will give this information to the patient, and have him follow-up with his primary care provider early next week if things are not getting better as expected. Departure - Departure Time of Disposition: 14:32 Disposition: Home, Self-Care 01 Condition: Fair Clinical Impression: Elevated blood pressure reading in office with diagnosis of hypertension Instructions: How to Take Your Blood Pressure, [id number], DASH Eating Plan Referrals: Zarina Rodriguez MD [Primary Care Provider] - Forms: ED Department Discharge Additional Instructions: You were evaluated in the ER today regarding your elevated blood pressure readings. A few changes have been made in your medication regimen. These are as follows: 1. Taper your clonidine, take 1 tablet every other day for a week, then take 1 tablet once daily, then skip 2 days, x3 cycles. 2. Start amlodipine 10 mg daily. (you were given your first dose of this today) 3. Stop taking atenolol as previously prescribed, and start metoprolol 25 mg twice daily. (start the metoprolol tonight) You will be given a one-month supply of these last 2 medications, you will need to follow-up with your primary care provider to have these meds continued if they provide you control. If you are not having much control of your blood pressures, by early next week recommend you follow-up with your primary care provider for reevaluation. You will also need to take your blood pressure every 8 hours while awake, and record these in a diary to make sure that your blood pressures are adequately controlled. You were given a handout on how and when to take your blood pressure that should help guide you while doing this. Please return to the ER at any time however if your symptoms change or worsen. Sepsis Event Note - Evaluation Sepsis Screening Result: No Definite Risk - Focused Exam Vital Signs: Vital Signs Temp Pulse Pulse Resp BP BP Pulse Ox 09/07/19 13:31 49 L 148/111 H 99 09/07/19 13:30 50 L 100 09/07/19 13:16 49 L 146/104 H 98 09/07/19 13:15 49 L 99 09/07/19 13:02 49 L 149/124 H 100 02/21/20 13:01 49 L 100 09/07/19 13:00 50 L 100 09/07/19 12:50 48 L 156/116 H 98 09/07/19 12:49 48 L 99 09/07/19 12:45 50 L 100 09/07/19 12:32 49 L 198/113 H 98 09/07/19 12:31 52 L 95 09/07/19 12:30 49 L 98 09/07/19 12:19 49 L 190/107 H 99 09/07/19 12:18 49 L 98 09/07/19 12:15 49 L 97 09/07/19 12:03 50 L 128/107 H 97 09/07/19 12:02 51 L 97 09/07/19 12:00 49 L 97 09/07/19 11:50 50 L 99 09/07/19 11:46 98.2 F 50 L 20 143/95 H 97 Date Exam was Performed: 09/07/19 Time Exam was Performed: 14:31 - My Orders Last 24 Hours: My Active Orders 09/07/19 12:23 EKG Documentation Completion [RC] STAT - Assessment/Plan Last 24 Hours: My Active Orders 09/07/19 12:23 EKG Documentation Completion [RC] STAT
--- NOTE | 2019-09-07 13:42 | CT ---
Head CT Technique: Multiple axial sections of the brain were obtained. Intravenous contrast was not utilized. Comparison: Prior head CT study of 01/10/19. Findings: Ventricles along with basal cisterns and sulci over the convexities are mildly prominent. No abnormal parenchymal densities are seen. No evidence of intracranial hemorrhage. No midline shift or mass effect is seen. Mild mucosal thickening is seen within the inferior right maxillary sinus with retention cyst also felt to be present within the left maxillary sinus measuring about 1 cm. No acute calvarial abnormality is appreciated. Mastoid sinuses showed nothing acute. Impressio 1. Mild chronic-appearing findings within the inferior maxillary sinuses. 2. Nothing acute is appreciated on noncontrast head CT exam. Diagnostic code #2 Study was dictated in [place] Standard Time
[2019-09-07] MEDS ORDERED: amLODIPine 10 MG Tab PO ONE (14:24)
[2019-09-07] MEDS ORDERED: hydrALAZINE 25 MG Tab PO ONE (14:25)
== END 2019-09-07 15:07 | disposition home or self-care (01) ==
LOC: JD.ED 11:43
DX: I10 Essential (primary) hypertension (principal); Z79.899 Other long term (current) drug therapy
CPT/HCPCS: 36415; 70450; 80053; 81001; 83735; 83880; 84443; 84484; 85025; 93005; 99284; A9270; 93010; 99283

== ENCOUNTER 2020-01-25 16:08 | Emergency (ER) | payer MEDICAID ==
[2020-01-25] MEDS ORDERED: Ondansetron 4 MG/2 ML SDV IVPUSH ONE (16:16)
[2020-01-25] MEDS ORDERED: HYDROmorphone 0.5 MG/0.5 ML Syringe IVPUSH ONE ×2 (16:16→18:04)
--- NOTE | 2020-01-25 16:21 | EDM.PDOC ---
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 abnormalities of the great vessels or lungs. CT of the abdomen also proved to be completely normal showing no injuries to the liver, pancreas, spleen or the intestine Millie. Pelvis bones also were intact and no injury to your right total hip replacement identified. Expect to be very stiff and sore over the next 48 hours. A condition worsen before it gets better. You will need pain medication Percocet 5/325 mg likely 2 tablets every 4 hours as needed for pain relief. It is okay to take Motrin 600 mg every 6 hours as well. Suggest follow-up with your personal care physician in the next 7 to 10 days. X-rays of your right wrist were carried out as well as you are starting to have some swelling and pain in the wrist after the initial examination was performed. The x-rays of this area did not show any obvious fractures. It appears that it was sprained and this often occurs when we are hang onto the steering well at the time of trauma. Expect this area to be more tender and swollen tomorrow as well. Will need to be on MiraLAX powder which is a stool softener to prevent constipation from narcotic pain medication. Take 1 scoop or 17 g once daily with any kind of fluid as it has no taste. You need to take this as long as you are taking pain pills. The lumbar transverse process fractures will heal on their own over the next 6 to 12 weeks. First 10 days are the most miserable and then it slowly starts to get better. Sepsis Event Note (ED) - Focused Exam Vital Signs: Vital Signs Temp Pulse Resp BP Pulse Ox 01/25/20 18:30 36.5 C 58 L 16 172/110 H 100 01/25/20 16:10 37.7 C 63 20 176/113 H 100 - My Orders Last 24 Hours: My Active Orders 01/25/20 16:18 EKG Documentation Completion [RC] STAT - Assessment/Plan Last 24 Hours: My Active Orders 01/25/20 16:18 EKG Documentation Completion [RC] STAT
[2020-01-25] MEDS ORDERED: Sodium Chloride 0.9% 1,000 ML IV SCH (16:30)
[2020-01-25] MEDS ORDERED: Sodium Chloride 0.9% 10 ML Syringe FLUSH ONE (17:15)
[2020-01-25] MEDS ORDERED: Iopamidol 612 MG/ML 50 ML SDV IVPUSH ONE (17:15)
[2020-01-25] MEDS ORDERED: Iopamidol 612 MG/ML 100 ML Bottle IVPUSH ONE (17:15)
--- NOTE | 2020-01-25 17:16 | CT ---
Head CT Technique: Multiple axial sections through the brain were obtained. Intravenous contrast was not utilized. Comparison: Prior head CT study of 09/07/19 is available. Findings: Ventricles along with basal cisterns and sulci over the convexities are mildly prominent. No acute parenchymal change is seen. No evidence of intracranial hemorrhage. No midline shift or mass-effect is seen. Bone window settings were reviewed which show no acute calvarial finding. Mild mucosal thickening is noted within both inferior maxillary sinuses which is stable. Mastoid sinuses show nothing acute. No acute calvarial finding is appreciated. Impression: 1. Stable sinus findings as noted above. 2. No acute intracranial abnormality is appreciated. No change from previous study is seen. Diagnostic code #2 This report was dictated in MDT
--- NOTE | 2020-01-25 17:19 | CT ---
CT cervical spine Technique: Multiple axial sections were obtained from above C1 inferiorly to the bottom of T1. Reconstructed coronal and sagittal images were obtained. Comparison: No prior cervical spine study is available. Findings: Degenerative change is noted between the dens and anterior arch of C1. Moderate disc space narrowing at C5-6 and C6-7 with anterior osteophytes. Mild posterior osteophytes are also seen at these same levels. Mild degenerative apophyseal change is scattered throughout the cervical spine. Degenerative change is scattered within the uncovertebral joints which is most prominent at C5-6 and C6-7. No acute fracture is appreciated. No acute subluxation is noted. Severe left-sided neural foraminal stenosis is noted at C3-4. Mild right-sided neural foraminal stenosis is noted at C5-6. Mild right-sided neural foraminal stenosis is noted C6-7. Other neural foramina are patent. No discrete central canal stenosis is seen. Impression: 1. Degenerative change as described above. 2. Nothing acute is appreciated. Diagnostic code #2 This report was dictated in MDT
--- NOTE | 2020-01-25 17:28 | CT ---
CT chest Technique: Multiple axial sections through the chest were obtained. Reconstructed coronal and sagittal images were obtained. Comparison: No prior chest imaging is available. Findings: Thoracic aorta shows no aneurysm. No mediastinal hematoma is seen. Mild coronary artery calcification is seen. No pericardial thickening is seen. Lungs show no acute parenchymal change. No pulmonary contusion or pleural effusions are noted. No pneumothorax is appreciated. Bone window settings were reviewed which shows a transverse process fracture on the left side at L2 and L3. Os acromiale is noted within the left shoulder. No discrete rib fracture is appreciated. Reconstructed sagittal images shows no discrete sternal fracture Impression: 1. Fracture within the transverse process on the left side at L2 and L3. 2. Normal variant os acromiale is seen which can be a cause of chronic shoulder pain. 3. Other findings as noted above. No other acute abnormality is seen. Diagnostic code #3 This report was dictated in MDT CT abdomen and pelvis Technique: Multiple axial sections were obtained from above the dome of the diaphragm inferiorly through the pubic symphysis. Intravenous contrast was utilized. No oral contrast has been given. Comparison: No prior abdominal or pelvic imaging is available. Findings: Liver contains no focal parenchymal abnormality. Spleen appears within normal limits. Adrenal glands show no nodule. Pancreas shows no discrete abnormality. Accessory splenic tissue noted medial to the spleen. Kidneys show symmetric contrast enhancement. Very small cyst is noted within the lower left kidney. Gallbladder contains no calcified gallstones. Aorta shows no aneurysm. No retroperitoneal adenopathy or mesenteric abnormalities are seen. No pelvic mass or adenopathy is seen. No free fluid or inflammatory change is identified within the abdomen or within the pelvis. Delayed images shows contrast within the distal ureters and within the bladder. Small fat-containing left inguinal hernia is noted. Artifact is noted from right hip prosthesis. No acute abnormality is appreciated within the pelvis or hips. Fractures are again seen within the left transverse process of L1 and L2. Impression: 1. Nothing acute is appreciated on CT study of the abdomen and pelvis. 2. Findings which are believed to be incidental as described above. Diagnostic code #2 This report was dictated in MDT
--- NOTE | 2020-01-25 17:30 | CT ---
CT lumbar spine Technique: Multiple axial sections through the lumbar spine were obtained. Reconstructed coronal and sagittal images were obtained. Comparison: No prior lumbar spine imaging is available. Findings: Disc space narrowing and vacuum phenomenon is noted L4-5 and L5-S1. Transverse process fractures are seen within L1 and L2 on the left side. Minimal displacement is seen. No additional lumbar spine fracture is appreciated. Mild degenerative change within the L3-4 and L4-5 apophyseal joints is seen. Mild left-sided degenerative apophyseal change noted at L2-3. Circumferential disc bulging is seen which is most prominent at L4-5. No abnormal subluxation is seen. Impression: 1. Degenerative change. 2. Transverse process fractures on the left side of L1 and L2. 3. No other acute findings seen on CT study of the lumbar spine. Diagnostic code #3 This report was dictated in MDT
--- NOTE | 2020-01-25 17:31 | CT ---
CT thoracic spine Technique: Multiple axial sections through the thoracic spine were obtained. Reconstructed coronal and sagittal images were reviewed. Findings: Vertebral body heights are maintained. No thoracic spine fracture is appreciated. Scattered endplate osteophytes are seen. Scattered degenerative apophyseal change is noted. No acute fracture or abnormal subluxation is seen. Impression: 1. Degenerative change. 2. No acute fracture or abnormal subluxation is seen on CT study of the thoracic spine. Diagnostic code #2 This report was dictated in MDT
--- NOTE | 2020-01-25 19:22 | CR ---
Right wrist: 4 views of the right wrist are obtained. Slight degenerative change is noted at the CMC joint of the thumb and off the distal navicular bone. No acute fracture, dislocation or other bony abnormality is appreciated. Impression: 1. Mild degenerative change. 2. No acute bony abnormality is appreciated. Diagnostic code #2 This report was dictated in MDT
== END 2020-01-25 19:52 | disposition home or self-care (01) ==
LOC: JD.ED 16:08
DX: S34.01XA Concussion and edema of lumbar spinal cord, initial encounter (principal); S32.019A Unspecified fracture of first lumbar vertebra, initial encounter for closed fracture; S32.029A Unspecified fracture of second lumbar vertebra, initial encounter for closed fracture; S63.501A Unspecified sprain of right wrist, initial encounter; S13.4XXA Sprain of ligaments of cervical spine, initial encounter; S20.212A Contusion of left front wall of thorax, initial encounter; I10 Essential (primary) hypertension; F41.9 Anxiety disorder, unspecified; F32.9 Major depressive disorder, single episode, unspecified; E66.9 Obesity, unspecified; R42 Dizziness and giddiness; Z68.35 Body mass index [BMI] 35.0-35.9, adult; V43.52XA Car driver injured in collision with other type car in traffic accident, initial encounter
CPT/HCPCS: 36415; 70450; 71260; 72125; 72128; 72131; 73110; 74177; 80053; 80307; 81001; 83690; 83735; 85025; 85610; 85730; 86850; 86900; 86901; 93005; 96361; 96374; 96375; 96376; 99285; J1170; J2405; J7030; Q9967; 93010; 99284

== ENCOUNTER 2020-10-19 04:16 | Emergency (ER) | payer OTHER, MEDICAID ==
[2020-10-19] MEDS ORDERED: Ketorolac 30 MG/ML SDV IM ONE (05:06)
[2020-10-19] MEDS ORDERED: Doxycycline 100 MG Cap PO ONE (05:07)
[2020-10-19] MEDS ORDERED: cefTRIAXone 1 GM, Lidocaine 1% 2.1 ML IM SCH ×2 (05:15)
--- NOTE | 2020-10-19 05:17 | EDM.PDOC ---
ED HPI GENERAL MEDICAL PROBLEM - General Chief Complaint: Lower Extremity Injury/Pain Stated Complaint: DROPPED RR TIE ON RIGHT GREAT TOE Time Seen by Provider: 10/19/20 04:22 Source of Information: Reports: Patient History Limitations: Reports: No Limitations - History of Present Illness INITIAL COMMENTS - FREE TEXT/NARRATIVE: About 5 in the afternoon on October 18, yesterday, about 12 hours prior to presentation in the ER. Patient had dropped a railroad tie on his right great toe. He was wearing foot wear but there has been a fair amount of pain since. Patient has not had any medical attention to this prior to arrival. No specific risk factors are identified. Patient smoked in the remote past. He is hypertensive. Leading up to this event and subsequent to it there is been no fever respiratory symptoms neurological symptoms chest pain or any other issue constituting an acute illness or condition. - Related Data Allergies Allergy/AdvReac Type Severity Reaction Status Date / Time No Known Allergies Allergy Verified 01/25/20 16:23 Home Meds: Home Meds ClonazePAM [KlonoPIN] 0.5 mg PO TID 08/09/18 [History] Venlafaxine [Effexor XR] 150 mg PO DAILY 08/09/18 [History] allopurinoL [Zyloprim] 300 mg PO DAILY 08/09/18 [History] Amitriptyline HCl 75 mg PO BEDTIME 04/09/19 [History] Indomethacin 50 mg PO ASDIRECTED PRN 04/09/19 [History] cloNIDine [Catapres] 0.1 mg PO BEDTIME 04/09/19 [History] hydrOXYzine HCL [Atarax] 25 mg PO BEDTIME 04/09/19 [History] atenoloL [Atenolol] 25 mg PO DAILY 01/25/20 [History] lisinopriL [Lisinopril] 5 mg PO DAILY 01/25/20 [History] oxyCODONE HCl/Acetaminophen [Percocet 5-325 mg Tablet] 1 - 2 each PO Q4H PRN #40 tablet 01/25/20 [Rx] Doxycycline [Vibramycin] 100 mg PO BID #20 cap 10/19/20 [Rx] Hydrocodone/Acetaminophen [Hydrocodone-Acetamin 10-325 mg] 1 each PO DAILY PRN #3 tablet 10/19/20 [Rx] cephALEXin [Keflex] 500 mg PO Q8H #30 cap 10/19/20 [Rx] Past Medical History HEENT History: Reports: Impaired Vision Cardiovascular History: Reports: High Cholesterol, Hypertension Other Cardiovascular History: high cholesterol Respiratory History: Reports: None Gastrointestinal History: Reports: Chronic Constipation, Hemorrhoids Other Gastrointestinal History: left inguinal hernia Genitourinary History: Reports: Renal Calculus, Other (See Below) Other Genitourinary History: erectle dysfunction [employer] History: Reports: None Other Musculoskeletal History: right hand sprain, hand fracture right Neurological History: Reports: Other (See Below) Other Neuro History: tremor hands Psychiatric History: Reports: Anxiety, Depression Other Psychiatric History: insomnia Endocrine/Metabolic History: Reports: Obesity/BMI 30+ Hematologic History: Reports: None Immunologic History: Reports: None Oncologic (Cancer) History: Reports: None Dermatologic History: Reports: Other (See Below) Other Dermatologic History: herpes, mucous cyst to finger x3, seborrheic keratosis- feet - Infectious Disease History Infectious Disease History: Reports: Herpes - Past Surgical History Head Surgeries/Procedures: Reports: None Cardiovascular Surgical History: Reports: None Respiratory Surgical History: Reports: None GI Surgical History: Reports: Colonoscopy Other GI Surgeries/Procedures: Pt had a surgery to relieve GERD symptoms in 1989. "Tube tied around stomach to stop it from splashing up." Male Surgical History: Reports: None Endocrine Surgical History: Reports: None Neurological Surgical History: Reports: None Musculoskeletal Surgical History: Reports: Carpal Tunnel, Hip Replacement, Other (See Below) Other Musculoskeletal Surgeries/Procedures:: torn ligament repair R hand. Surgeries to remove cysts on bilateral hands. 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 ED EXAM, GENERAL - Physical Exam Exam: See Below Free Text/Narrative:: On exam the patient is alert and in no distress. Skin is warm and dry with normal turgor. Neck is supple without jugular venous distention. PERRLA, EOMI. ENT grossly normal. Lungs are clear breath sounds are full and equal bilaterally. Heart is regular. Abdomen is soft and nontender. There is no fl ank tenderness. There is no peripheral edema cyanosis or clubbing of the digits other than as noted below. Neurologically the patient is grossly intact with fluent speech and no deficit of motor or sensory function. Mood and affect are appropriate. Right great toe is generally ecchymotic across the dorsum. It is very tender to the touch or movement. Neurovascular tendon grossly intact. There is superficial abrasion or excoriation of skin at the interphalangeal joint without bleeding. There is no laceration of the skin otherwise. No suggestion this is an open fracture but there is an associated abrasion. No gross deformity. There is mild swelling of the digit. Course - Vital Signs Text/Narrative:: On x-ray there is an apparent fracture through the distal phalanx, nondisplaced, with a possible mild comminution associated. No dislocation. Etiology report pending. Because of the associated skin injury patient needs to be treated with antibiotic. He is given Rocephin IM in the emergency department and an oral dose of doxycycline 200 mg. He will be discharged on Keflex and doxycycline see order below. He has a relationship with Dr. Cadena local orthopedist and is scheduled with him for surgery in the not too distant future. He is to see him without fail within 24 hours. Patient was given to understand that if an infection is allowed to develop there would be serious consequences. The wound was cleansed and dressed and he is put in a postop shoe and is instructed to have no weightbearing on this side. Use crutches. Keep elevated to level of heart or greater. Toradol 15 mg also given IM in the emergency department. See prescriptions below. - Orders/Labs/Meds Orders: Active Orders 24 hr Category Date Time Status Toes Great Toe Rt T5 [CR] Stat Exams 10/19/20 04:31 Ordered Doxycycline [Vibramycin] Med 10/19/20 05:07 Once 200 mg PO ONETIME ONE cefTRIAXone 1 GM with Lidocaine 1% 2.1 ML IM Med 10/19/20 05:15 Ordered cefTRIAXone [Rocephin] 1 gm Lidocaine 1% [Xylocaine 1%] 2.1 ml IM Q24H DME for Discharge [COMM] Stat Oth 10/19/20 04:45 Ordered Medication Orders Ceftriaxone Sodium 1 gm/ (Lidocaine HCl 2.1 ml) 0 gm IM Q24H [facility] Meds: Medications Generic Name Dose Route Start Last Admin Trade Name Freq PRN Reason Stop Dose Admin Ceftriaxone Sodium 1 gm/ 0 gm 10/19/20 05:15 Lidocaine HCl 2.1 ml IM Q24H RANDY Discontinued Medications Generic Name Dose Route Start Last Admin Trade Name Freq PRN Reason Stop Dose Admin Ketorolac Tromethamine 15 mg 10/19/20 05:06 Ketorolac 30 Mg/Ml Sdv IM 10/19/20 05:07 ONETIME ONE Departure - Departure Time of Disposition: 05:19 Disposition: Home, Self-Care 01 Condition: Good Clinical Impression: Fracture of great toe of right foot Qualifiers: Encounter type: initial encounter Fracture type: closed Phalanx: distal Fracture alignment: nondisplaced Qualified Code(s): S92.424A - Nondisplaced fracture of distal phalanx of right great toe, initial encounter for closed fracture Abrasion of toe of right foot Qualifiers: Encounter type: initial encounter Qualified Code(s): S90.414A - Abrasion, right lesser toe(s), initial encounter - Discharge Information Prescriptions: Hydrocodone/Acetaminophen [Hydrocodone-Acetamin 10-325 mg] 1 each PO DAILY PRN #3 tablet PRN Reason: Pain (Severe 7-10) cephALEXin [Keflex] 500 mg PO Q8H #30 cap Doxycycline [Vibramycin] 100 mg PO BID #20 cap Referrals: Zarina Rodriguez MD [Primary Care Provider] - Additional Instructions: You have been seen for a fracture of your right great toe. There is also an associated superficial skin wound. It is necessary for you to take an antibiotic and you have received Rocephin a broad-spectrum antibiotic by injection in the emergency department and a second antibiotic to cover all organisms that could affect this toe wound. If infection sets in there could be serious consequences. Close follow-up is absolutely necessary. Keep weight off. Crutches have been issued. No weightbearing on the right foot. Keep elevated to the height of your heart or higher. A cold pack is also recommended for the next 12 to 24 hours. You must see orthopedist tomorrow if at all possible. You should see Dr. Cadena definitely within 24 hours for follow-up. You are going to be on 2 antibiotics as an outpatient to cover all bacteria that might infect this toe. 1 is Keflex and the other is doxycycline. See instructions for both of these antibiotics on the bottle issued. If you have any problem arranging local follow-up, or if there is fever increased pain or any serious issue related to this injury return to the ER immediately. There is also a prescription for a narcotic pain pill. You may take it once a day in the morning as needed for pain. Taking it more than 1 time a day is not going to be helpful and will render this kind of pain killer ineffective for managing your pain. It is recommended that you use Tylenol or make sparing use of ibuprofen or similar medications for other discomfort. Keeping the foot elevated is going to do more than anything to manage the pain at the present time. - My Orders Last 24 Hours: My Active Orders 10/19/20 04:31 Toes Great Toe Rt T5 [CR] Stat 10/19/20 04:45 DME for Discharge [COMM] Stat 10/19/20 05:07 Doxycycline [Vibramycin] 200 mg PO ONETIME ONE 10/19/20 05:15 cefTRIAXone 1 GM with Lidocaine 1% 2.1 ML IM cefTRIAXone [Rocephin] 1 gm Lidocaine 1% [Xylocaine 1%] 2.1 ml IM Q24H - Assessment/Plan Last 24 Hours: My Active Orders 10/19/20 04:31 Toes Great Toe Rt T5 [CR] Stat 10/19/20 04:45 DME for Discharge [COMM] Stat 10/19/20 05:07 Doxycycline [Vibramycin] 200 mg PO ONETIME ONE 10/19/20 05:15 cefTRIAXone 1 GM with Lidocaine 1% 2.1 ML IM cefTRIAXone [Rocephin] 1 gm Lidocaine 1% [Xylocaine 1%] 2.1 ml IM Q24H
--- NOTE | 2020-10-20 09:26 | CR ---
Right first toe: 3 views centered to the right first toe were obtained. Please note that x-ray states left which is most likely incorrect. Please correlate. Comparison: No foot or toe study is available. Fracture is identified within the distal phalanx which is slightly comminuted. Alignment remains close to anatomic. Diffuse soft tissue swelling is identified. No additional fracture or other abnormality is appreciated. Impression: 1. Fracture within the distal phalanx of the right first toe with soft tissue swelling. Diagnostic code #3
== END 2020-10-19 06:30 | disposition home or self-care (01) ==
LOC: JD.ED 04:16
DX: S92.424A Nondisplaced fracture of distal phalanx of right great toe, initial encounter for closed fracture (principal); S90.414A Abrasion, right lesser toe(s), initial encounter; I10 Essential (primary) hypertension; E66.9 Obesity, unspecified; Z79.899 Other long term (current) drug therapy; V81.5XXA Occupant of railway train or railway vehicle injured by fall in railway train or railway vehicle, initial encounter
CPT/HCPCS: 73660; 96372; 99283; A9270; J0696; J1885

== ENCOUNTER 2020-12-08 06:20 | Observation (INO) | payer MEDICAID ==
[~2020-12-08 06:20] MED LIST: Acetaminophen 325 MG Tab PO SCH; Albuterol 0.083% 2.5 MG/3 ML Neb Soln NEB PRN; Lactated Ringers 1,000 ML IV SCH; Lidocaine 1%/Sod Bicarbonate in NS 8.4% 1 ML Syringe IDERM PRN; Pregabalin 25 MG Cap PO SCH; Sodium Chloride 0.9% 10 ML Syringe FLUSH PRN; oxyCODONE ER 10 MG TAB.ER PO SCH
[2020-12-08] MEDS ORDERED: Propofol 200 MG/20 ML SDV ONE ×4 (06:41→10:18)
[2020-12-08] MEDS ORDERED: fentaNYL 100 MCG/2 ML SDV ONE ×2 (06:42→11:46)
[2020-12-08] MEDS ORDERED: Ketamine 500 mg/10 ML MDV ONE (06:42)
[2020-12-08] MEDS ORDERED: Lidocaine 1% 4 ML ONE (06:42)
[2020-12-08] MEDS ORDERED: Midazolam 1 MG/ML 2 ML SDV ONE (06:42)
[2020-12-08] MEDS ORDERED: Dexamethasone 4 MG/ML 5 ML MDV ONE (06:43)
[2020-12-08] MEDS ORDERED: Ondansetron 4 MG/2 ML SDV ONE (06:43)
[2020-12-08] MEDS ORDERED: Ketorolac 15 MG/ML SDV ONE (06:43)
[2020-12-08] MEDS ORDERED: ceFAZolin 1 GM Vial ONE (06:48)
[2020-12-08] MEDS ORDERED: Dexmedetomidine 200 MCG/2 ML SDV ONE (07:46)
[2020-12-08] MEDS ORDERED: Sodium Chloride 0.9% 100 ML ONE (07:46)
[2020-12-08] MEDS: Morphine 8 MG, EPINEPHrine 0.3 MG, Cefuroxime 750 MG, Ketorolac 30 MG, Sodium Chloride ... PRN ×10 (08:18→10:27)
[2020-12-08] MEDS: Vancomycin 1 GM SDV ONE ×2 (08:18→10:27)
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
[2020-12-08] MEDS ORDERED: HYDROmorphone 1 MG/ML Syringe ONE (09:42)
[2020-12-08] MEDS ORDERED: Lactated Ringers 1,000 ML ONE ×3 (09:45→10:36)
[2020-12-08] MEDS ORDERED: Ondansetron 4 MG/2 ML SDV IVPUSH PRN ×2 (10:57→11:16)
[2020-12-08] MEDS ORDERED: Magnesium Hydroxide 400 MG/5 ML Susp 30 ML Cup PO PRN (10:57)
[2020-12-08] MEDS ORDERED: Naloxone 0.4 MG/ML SDV IVPUSH PRN (10:57)
[2020-12-08] MEDS ORDERED: Bisacodyl 5 MG Tab PO PRN (10:57)
[2020-12-08] MEDS ORDERED: Sennosides 8.6 MG Tab PO PRN (10:57)
[2020-12-08] MEDS ORDERED: Morphine 2 MG/ML SYRINGE IVPUSH PRN (10:57)
--- NOTE | 2020-12-08 11:15 | PCM.POSTAN ---
POST ANESTHESIA ASSESSMENT - MENTAL STATUS Mental Status: Other (Drowsy) - VITAL SIGNS Vital Signs: Last Vital Signs Temp 36.2 C 12/08/20 06:20 Pulse 84 12/08/20 06:20 Resp 20 12/08/20 06:20 BP 140/92 H 12/08/20 06:20 Pulse Ox 100 12/08/20 06:20 1100 87/62 56 17 98.1F 96% 4 L/NC - RESPIRATORY Respiratory Status: Respiratory Rate WNL, Airway Patent, O2 Saturation Stable, Supplemental Oxygen - CARDIOVASCULAR CV Status: Pulse Rate WNL, Blood Pressure Stable - GASTROINTESTINAL GI Status: No Symptoms - PAIN Pain Score: 0 - POST OP HYDRATION Hydration Status: Adequate & Stable
[2020-12-08] MEDS ORDERED: fentaNYL 100 MCG/2 ML SDV IVPUSH PRN (11:16)
[2020-12-08] MEDS: HYDROmorphone 0.5 MG/0.5 ML Syringe IVPUSH PRN ×2 (11:56→12:12)
--- NOTE | 2020-12-08 11:56 | CR ---
Pelvis and right hip: AP view of the pelvis was obtained as well as AP and crosstable lateral views of the right hip. Comparison: Prior pelvis and right hip study of 08/10/18. Findings: AP view was centered to the hips. Portions of the iliac crests were not included on the exam. Interval removal and replacment of right hip prosthesis is seen. Components are aligned. Underlying bony structures are intact. Soft tissue air is noted around the right hip compatible with recent surgical procedure. Impression: 1. Satisfactory radiographic appearance of the removal of old right hip prosthesis and placement of new right hip prosthesis. Diagnostic code #2
[2020-12-08] MEDS ORDERED: oxyCODONE 5 MG Tab PO PRN (12:24)
[2020-12-08] MEDS: Cyclobenzaprine 10 MG Tab PO PRN (12:31)
--- NOTE | 2020-12-08 12:45 | CR ---
Right hip: Single fluoroscopic spot view was obtained of a distal right hip prosthesis. No underlying bony abnormality is seen. Please note that date for series in this exam is incorrect at 07/18/02. Impression: 1. Nothing acute is seen. Diagnostic code #2
[2020-12-08] MEDS ORDERED: Ketorolac 15 MG/ML SDV IVPUSH PRN (13:00)
[2020-12-08] MEDS: ceFAZolin 2 GM in Premix Bag 1 BAG IV SCH (15:52)
[2020-12-08] MEDS: Carboxymethylcellulose Sodium 1% Ophth Gel 15 ML Bottle EYEBOTH PRN ×2 (16:25→22:12)
[2020-12-08] MEDS: ClonazePAM 1 MG Tab PO SCH ×2 (17:29→20:11)
[2020-12-08] MEDS: Lisinopril 20 MG Tab PO SCH (17:29)
[2020-12-08] MEDS ORDERED: Venlafaxine 75 MG Cap.ER PO SCH ×2 (17:30→21:00)
--- NOTE | 2020-12-08 18:46 | PCM48HPAN ---
Post Anesthesia Note - EVALUATION WITHIN 48HRS OF ANESTHETIC Vital Signs in Normal Range: Yes Patient Participated in Evaluation: Yes Respiratory Function Stable: Yes Airway Patent: Yes Cardiovascular Function Stable: Yes Hydration Status Stable: Yes Pain Control Satisfactory: Yes Nausea and Vomiting Control Satisfactory: Yes Mental Status Recovered: Yes Vital Signs: Last Vital Signs Temp 98.4 F 12/08/20 12:00 Pulse 68 12/08/20 12:30 Resp 15 12/08/20 12:30 BP 132/87 12/08/20 17:29 Pulse Ox 97 12/08/20 12:30 - COMMENTS/OBSERVATIONS Free Text/Narrative:: patient complains of something in his right eye. Noted right eye watering a bit at times. I took flashlight and did not see anything in his eye. He had his eye flushed a few times with saline which did not help. Patient states he noted it right after surgery. Will monitor and recheck tomorrow. Informed nurses to irrigate his eye prn. Minimal redness to right eye.
[2020-12-08] MEDS: Docusate Sodium 100 MG Cap PO SCH (20:10)
[2020-12-08] MEDS: Famotidine 20 MG Tab PO SCH (20:10)
[2020-12-08] MEDS: oxyCODONE 5 MG Tab PO PRN (20:16)
[2020-12-08] MEDS: Acetaminophen 325 MG Tab PO PRN (20:17)
[2020-12-08] MEDS ORDERED: Amitriptyline 25 MG Tab PO SCH (21:00)
[2020-12-08] MEDS ORDERED: hydrOXYzine HCl 25 MG Tab PO SCH (21:00)
[2020-12-09] MEDS: ceFAZolin 2 GM in Premix Bag 1 BAG IV SCH ×2 (00:23→06:34)
[2020-12-09] MEDS: Cyclobenzaprine 10 MG Tab PO PRN (00:24)
[2020-12-09] MEDS: oxyCODONE 5 MG Tab PO PRN ×3 (00:25→10:45)
[2020-12-09] MEDS: Acetaminophen 325 MG Tab PO PRN (06:36)
[2020-12-09] MEDS: Docusate Sodium 100 MG Cap PO SCH (08:10)
[2020-12-09] MEDS: Famotidine 20 MG Tab PO SCH (08:11)
[2020-12-09] MEDS: ClonazePAM 1 MG Tab PO SCH (08:11)
[2020-12-09] MEDS: Lisinopril 20 MG Tab PO SCH (08:12)
--- NOTE | 2020-12-09 08:13 | PCM48HPAN ---
Post Anesthesia Note - EVALUATION WITHIN 48HRS OF ANESTHETIC Vital Signs in Normal Range: Yes Patient Participated in Evaluation: Yes Respiratory Function Stable: Yes Airway Patent: Yes Cardiovascular Function Stable: Yes Hydration Status Stable: Yes Pain Control Satisfactory: Yes Nausea and Vomiting Control Satisfactory: Yes Mental Status Recovered: Yes Vital Signs: Last Vital Signs Temp 36.6 C 12/09/20 06:43 Pulse 79 12/09/20 06:43 Resp 18 12/09/20 06:43 BP 148/91 H 12/09/20 06:43 Pulse Ox 98 12/09/20 08:00 - COMMENTS/OBSERVATIONS Free Text/Narrative:: Siddharth is sitting up in bed waiting for breakfast. Eye discomfort has improved. He is very emotional, crying, regarding his divorce and the need for finding a academic director. Nursing staff has told him it is not appropriate to question staff for companionship and this bothers him. I reinforced he needs to focus on his healing and getting up and moving today. He is also wanting to be sure he is given enough pain medication for home as he has lived in pain for two years waiting for Dr. Cadena to address his hip pain.
[2020-12-09] MEDS ORDERED: Aspirin 325 MG Tab.EC PO SCH (09:00)
[2020-12-09] MEDS ORDERED: Verapamil 120 MG Cap.ER PO SCH (09:00)
[2020-12-09] MEDS ORDERED: Allopurinol 300 MG Tab PO SCH (09:00)
[2020-12-09] MEDS ORDERED: Rosuvastatin 10 MG Tab PO SCH (09:00)
--- NOTE | 2020-12-10 08:12 | PCM.SURGPN ---
- General Info Date of Service: 12/09/20 POD#: 1 Functional Status: Reports: Pain Controlled, Tolerating Diet, Ambulating, Urinating, Incentive Spirometry, Other (The pt is prepared for d/c to home.) - Patient Data Vitals - Most Recent: Last Vital Signs Temp 98.1 F 12/09/20 08:09 Pulse 82 12/09/20 08:11 Resp 16 12/09/20 08:09 BP 149/84 H 12/09/20 08:12 Pulse Ox 95 12/09/20 09:49 Weight - Most Recent: 259 lb 3.2 oz Med Orders - Current: Current Medications Discontinued Medications Acetaminophen (Acetaminophen 325 Mg Tab) 975 mg PO ONETIME [facility] Stop: 12/08/20 12:01 Last Admin: 12/08/20 06:21 Dose: 975 mg Documented by: Acetaminophen (Acetaminophen 325 Mg Tab) 650 mg PO Q6H PRN PRN Reason: Pain Last Admin: 12/09/20 06:36 Dose: 650 mg Documented by: Albuterol (Albuterol 0.083% 2.5 Mg/3 Ml Neb Soln) 2.5 mg NEB ONETIME PRN PRN Reason: Smoker Stop: 12/08/20 16:00 Allopurinol (Allopurinol 300 Mg Tab) 300 mg PO DAILY [facility] Last Admin: 12/09/20 08:11 Dose: 300 mg Documented by: Amitriptyline HCl (Amitriptyline 25 Mg Tab) 100 mg PO BEDTIME [facility] Last Admin: 12/08/20 20:11 Dose: 100 mg Documented by: Artificial Tears (Carboxymethylcellulose Sodium 1% Ophth Gel 15 Ml Bottle) 0 ml EYEBOTH QID PRN PRN Reason: Dry Eyes Last Admin: 12/08/20 22:12 Dose: 1 drop Documented by: Aspirin (Aspirin 325 Mg Tab.Ec) 325 mg PO BID [facility] Last Admin: 12/09/20 08:11 Dose: 325 mg Documented by: Bisacodyl (Bisacodyl 5 Mg Tab) 5 mg PO DAILY PRN PRN Reason: Constipation Cefazolin Sodium (Cefazolin 1 Gm Vial) Confirm Administered Dose 2 gm .ROUTE .STK-MED ONE Stop: 12/08/20 06:49 Clonazepam (Clonazepam 1 Mg Tab) 1 mg PO TID [facility] Last Admin: 12/09/20 08:11 Dose: 1 mg Documented by: Morphine Sulfate 8 mg/Epinephrine HCl 0.3 mg/Cefuroxime Sodium 750 mg/Ketorolac Tromethamine 30 mg/Sodium Chloride 7.9 ml 0 mg .XX ASDIRECTED PRN PRN Reason: Pain Stop: 12/08/20 13:00 Last Admin: 12/08/20 10:27 Dose: 788.3 mg Documented by: Cyclobenzaprine HCl (Cyclobenzaprine 10 Mg Tab) 10 mg PO TID PRN PRN Reason: Spasms Last Admin: 12/09/20 00:24 Dose: 10 mg Documented by: Dexamethasone (Dexamethasone 4 Mg/Ml 5 Ml Mdv) Confirm Administered Dose 20 mg .ROUTE .STK-MED ONE Stop: 12/08/20 06:44 Dexmedetomidine HCl (Dexmedetomidine 200 Mcg/2 Ml Sdv) Confirm Administered Dose 200 mcg .ROUTE .STK-MED ONE Stop: 12/08/20 07:47 Docusate Sodium (Docusate Sodium 100 Mg Cap) 100 mg PO BID [facility] Last Admin: 12/09/20 08:10 Dose: 100 mg Documented by: Famotidine (Famotidine 20 Mg Tab) 20 mg PO Q12H [facility] Last Admin: 12/09/20 08:11 Dose: 20 mg Documented by: Fentanyl (Fentanyl 100 Mcg/2 Ml Sdv) Confirm Administered Dose 100 mcg .ROUTE .STK-MED ONE Stop: 12/08/20 06:43 Fentanyl (Fentanyl 100 Mcg/2 Ml Sdv) 50 mcg IVPUSH Q5M PRN PRN Reason: Pain Stop: 12/08/20 18:00 Last Admin: 12/08/20 11:48 Dose: 50 mcg Documented by: Fentanyl (Fentanyl 100 Mcg/2 Ml Sdv) Confirm Administered Dose 100 mcg .ROUTE .STK-MED ONE Stop: 12/08/20 11:47 Last Admin: 12/08/20 15:00 Dose: Not Given Documented by: Hydromorphone HCl (Hydromorphone 1 Mg/Ml Syringe) Confirm Administered Dose 1 mg .ROUTE .STK-MED ONE Stop: 12/08/20 09:43 Hydromorphone HCl (Hydromorphone 0.5 Mg/0.5 Ml Syringe) 0.5 mg IVPUSH Q10M PRN PRN Reason: Pain (severe 7-10) Stop: 12/08/20 18:00 Last Admin: 12/08/20 12:12 Dose: 0.5 mg Documented by: Hydroxyzine HCl (Hydroxyzine Hcl 25 Mg Tab) 25 mg PO BEDTIME [facility] Last Admin: 12/08/20 20:10 Dose: 25 mg Documented by: Lactated Ringer's (Ringers, Lactated) 1,000 mls @ 125 mls/hr IV ASDIRECTED [facility] Stop: 12/08/20 23:00 Last Admin: 12/08/20 06:40 Dose: 125 mls/hr Documented by: Lidocaine HCl (Xylocaine-Mpf 1%) Confirm Administered Dose 4 mls @ as directed .ROUTE .STK-MED ONE Stop: 12/08/20 06:43 Sodium Chloride (Normal Saline) Confirm Administered Dose 100 mls @ as directed .ROUTE .STK-MED ONE Stop: 12/08/20 07:47 Lactated Ringer's (Ringers, Lactated) Confirm Administered Dose 1,000 mls @ as directed .ROUTE .STK-MED ONE Stop: 12/08/20 09:46 Lactated Ringer's (Ringers, Lactated) Confirm Administered Dose 1,000 mls @ as directed .ROUTE .STK-MED ONE Stop: 12/08/20 09:46 Lactated Ringer's (Ringers, Lactated) Confirm Administered Dose 1,000 mls @ as directed .ROUTE .STK-MED ONE Stop: 12/08/20 10:37 Cefazolin Sodium/Dextrose 2 gm (/ Premix) 50 mls @ 100 mls/hr IV Q8H [facility] Stop: 12/09/20 07:29 Last Admin: 12/09/20 06:34 Dose: 100 mls/hr Documented by: Ketamine HCl (Ketamine 500 Mg/10 Ml Mdv) Confirm Administered Dose 500 mg .ROUTE .STK-MED ONE Stop: 12/08/20 06:43 Ketorolac Tromethamine (Ketorolac 15 Mg/Ml Sdv) Confirm Administered Dose 15 mg .ROUTE .STK-MED ONE Stop: 12/08/20 06:44 Ketorolac Tromethamine (Ketorolac 15 Mg/Ml Sdv) 15 mg IVPUSH Q6H PRN PRN Reason: Pain Last Admin: 12/08/20 15:51 Dose: 15 mg Documented by: Lidocaine/Sodium Bicarbonate (Lidocaine 1%/Sod Bicarbonate In Ns 8.4% 1 Ml Syringe) 0.25 ml IDERM ONETIME PRN PRN Reason: Prior to IV Start Stop: 12/08/20 18:00 Last Admin: 12/08/20 06:40 Dose: 0.25 ml Documented by: Lisinopril (Lisinopril 20 Mg Tab) 40 mg PO DAILY [facility] Last Admin: 12/09/20 08:12 Dose: 40 mg Documented by: Magnesium Hydroxide (Magnesium Hydroxide 400 Mg/5 Ml Susp 30 Ml Cup) 30 ml PO BID PRN PRN Reason: Constipation Midazolam HCl (Midazolam 1 Mg/Ml 2 Ml Sdv) Confirm Administered Dose 2 mg .ROUTE .[employer]-MED ONE Stop: 12/08/20 06:43 Morphine Sulfate (Morphine 2 Mg/Ml Syringe) 2 mg IVPUSH Q2H PRN PRN Reason: Breakthrough Pain Naloxone HCl (Naloxone 0.4 Mg/Ml Sdv) 0.1 mg IVPUSH Q5M PRN PRN Reason: Oversedation Ondansetron HCl (Ondansetron 4 Mg/2 Ml Sdv) Confirm Administered Dose 4 mg .ROUTE .[employer]-MED ONE Stop: 12/08/20 06:44 Ondansetron HCl (Ondansetron 4 Mg/2 Ml Sdv) 4 mg IVPUSH Q6H PRN PRN Reason: Nausea/Vomiting Ondansetron HCl (Ondansetron 4 Mg/2 Ml Sdv) 4 mg IVPUSH ONETIME PRN PRN Reason: Nausea/Vomiting Stop: 12/08/20 18:00 Oxycodone HCl (Oxycodone Er 10 Mg Tab.Er) 10 mg PO ONETIME [facility] Stop: 12/08/20 12:01 Last Admin: 12/08/20 06:21 Dose: 10 mg Documented by: Oxycodone HCl (Oxycodone 5 Mg Tab) 5 - 15 mg PO Q4H PRN PRN Reason: Pain Last Admin: 12/09/20 10:45 Dose: 5 mg Documented by: Oxycodone HCl (Oxycodone 5 Mg Tab) 5 - 10 mg PO Q4H PRN PRN Reason: Pain Last Admin: 12/08/20 12:32 Dose: 10 mg Documented by: Pregabalin (Pregabalin 25 Mg Cap) 50 mg PO ONETIME [facility] Stop: 12/08/20 12:01 Last Admin: 12/08/20 06:21 Dose: 50 mg Documented by: Propofol (Propofol 200 Mg/20 Ml Sdv) Confirm Administered Dose 600 mg .ROUTE .STK-MED ONE Stop: 12/08/20 06:42 Propofol (Propofol 200 Mg/20 Ml Sdv) Confirm Administered Dose 200 mg .ROUTE .STK-MED ONE Stop: 12/08/20 09:30 Propofol (Propofol 200 Mg/20 Ml Sdv) Confirm Administered Dose 200 mg .ROUTE .STK-MED ONE Stop: 12/08/20 09:48 Propofol (Propofol 200 Mg/20 Ml Sdv) Confirm Administered Dose 200 mg .ROUTE .STK-MED ONE Stop: 12/08/20 10:19 Rosuvastatin Calcium (Rosuvastatin 10 Mg Tab) 10 mg PO DAILY [facility] Last Admin: 12/09/20 08:11 Dose: 10 mg Documented by: Senna (Sennosides 8.6 Mg Tab) 8.6 mg PO BID PRN PRN Reason: Constipation Sodium Chloride (Sodium Chloride 0.9% 10 Ml Syringe) 10 ml FLUSH ASDIRECTED PRN PRN Reason: Keep Vein Open Stop: 12/08/20 18:00 Tranexamic Acid (Tranexamic Acid 1,000 Mg/10 Ml Amp) Confirm Administered Dose 1,000 mg .ROUTE .STK-MED ONE Stop: 12/08/20 06:48 Last Admin: 12/08/20 10:27 Dose: 1,000 mg Documented by: Vancomycin HCl (Vancomycin 1 Gm Sdv) Confirm Administered Dose 1 gm .ROUTE .STK- MED ONE Stop: 12/08/20 06:48 Last Admin: 12/08/20 10:27 Dose: 1 gm Documented by: Venlafaxine HCl (Venlafaxine 75 Mg Cap.Er) 300 mg PO DAILY [facility] Venlafaxine HCl (Venlafaxine 75 Mg Cap.Er) 300 mg PO BEDTIME [facility] Last Admin: 12/08/20 20:11 Dose: 300 mg Documented by: Verapamil HCl (Verapamil 120 Mg Cap.Er) 120 mg PO DAILY [facility] Last Admin: 12/09/20 08:11 Dose: 120 mg Documented by: - Exam Wound/Incisions: Dressing Dry and Intact General: Alert, Cooperative, No Acute Distress Lungs: Normal Respiratory Effort Extremities: Other (NVS intact for RLE. ) Sepsis Event Note - Evaluation Sepsis Screening Result: No Definite Risk - Problem List Review Problem List Initiated/Reviewed/Updated: Yes - Assessment Assessment (Free Text/Narrative):: POD#1 - s/p right femoral stem revision arthroplasty - Plan Plan (Free Text/Narrative):: 1. Pt may d/c to home today. 2. 325mg ASA PO BID, frequent mobility, TEDs. 3. KEON precautions. WBAT RLE. The pt was evaluated by Dr. Cadena.
--- NOTE | 2020-12-10 08:15 | PCM.DCSUM1 ---
Discharge Summary - Hospital Course Brief History: Siddharth is a 60 yo male who underwent revision of right femoral stem with Dr. Cadena on 12-08-2020. The procedure was completed under spinal anesthesia with sedation. The pt tolerated the procedure well. The pt was noted to have 1200cc blood loss with procedure and therefore, was admitted to the Medical-Surgical Unit under observation status. The pt's Hospital course was uneventful. The pt's Hgb on POD#1 was 10.5. On POD#1, 325mg ASA BID was initiated for VTE prophylaxis. SCDs and TEDs were also ordered. A Mepilex dressing was placed at the incision site at the time of surgery and remained clean and dry. The pt participated in P.T. and O.T. and progressed well. He followed the KEON precautions. The pt was allowed to WBAT. On POD#1, the pt was deemed appropriate to discharge to home. - Discharge Data Discharge Date: 12/09/20 Discharge Disposition: Home, Self-Care 01 Condition: Good - Referral to Home Health Primary Care Physician: Zarina Rodriguez MD - Patient Summary/Data Consults: Consultations 12/08/20 10:54 OT Evaluation and Treatment [CONS] Routine PT Evaluation and Treatment [CONS] Routine - Patient Instructions Diet: Usual Diet as Tolerated Activity: Apply Ice, As Tolerated, Elevate Extremity, Full Weight Bearing Activity, Other: Follow the total hip precautions. Driving: Do Not Drive Showering/Bathing: May Shower Wound/Incision Care: Keep Operative Site/Wound Site Clean and Dry, Do NOT Change Dressing Notify Provider of: Fever, Increased Pain, Swelling and Redness, Drainage, Nausea and/or Vomiting Other/Special Instructions: Please get up and moving around EVERY HOUR while awake. This helps to prevent blood clots. Please use your walker and have help with mobility as needed. Take a short walk in your home every hour while awake. Starting on 12-09-2020, please take 325mg aspirin TWICE daily. The aspirin is being used for blood clot prevention and not for pain management so please do not miss a dose of the medication. You could use a medication like Pepcid or famotidine and a medication like Prilosec or Nexium to protect your stomach while you are using the aspirin. At home, please complete the exercises that you learned after surgery. Schedule for physical therapy. Use the pain medication as needed. The medication may cause drowsiness and constipation. Contact your primary care provider for instructions if you are constipated. You may use a stool softener like docusate sodium or Colace 100mg twice daily and/o r a laxative like Miralax daily for constipation. Increase your water and fiber intake while you are using the pain medication. Please discontinue use of the prescription pain medication as soon as able. The goal is to use the least amount of prescription pain medication as possible and to discontinue use of the prescription pain medication as soon as possible. Please do not use other medi cations that may cause drowsiness (other pain medications, anxiety pills, cold medications, sleeping pills, etc) while using the prescription pain medication. Do not use alcohol while using the pain medication. You may use acetaminophen or Tylenol for pain management, however, please ensure you are not using over 4000 mg or 4 grams of acetaminophen per day. At this time, please do not use ibuprofen (Motrin, Advil) or naproxen (Aleve) for pain management as you are using the aspirin. When the aspirin course is completed in 5 weeks, you could use ibuprofen or naproxen for pain management (if this is allowed by your primary care provider). On the day following surgery, you may remove the KEVON bandage on the surgical limb and put on the ANU hose. If you can tolerate use of the ANU hose, wear them during the day and remove them at night. Elevate the limb to decrease swelling. Elevating the limb above the level of the heart will be most effective. Elevating the foot higher than the knee will help to decrease swelling in the foot. Place ice to the area often. Place a towel between your skin and the blue pad. Please keep the dressing in place until follow-up. As long as the dressing is sealed and without a hole, the dressing is water resistant and therefore, you may have a shower. Please do not soak that dressing in a tub, pool, whirlpool. Notify the Clinic if the dressing becomes saturated. Increase your protein intake while you are healing. It is normal to have swelling and bruising at the surgical site, as well as above and below the surgical site. If you have diabetes or have been instructed by your primary care provider to monitor your blood sugars, please closely monitor your sugars. Notify your primary care provider of the values. Elevated sugars can i ncrease the risk of infection. If you have questions or concerns, please call [phone] and leave a message for the nurse. Your call will be returned. - Discharge Plan *PRESCRIPTION DRUG MONITORING PROGRAM REVIEWED*: No *COPY OF PRESCRIPTION DRUG MONITORING REPORT IN PATIENT LUIS: No Prescriptions/Med Rec: Aspirin [Aspirin EC] 325 mg PO BID #70 tab oxyCODONE 5 - 10 mg PO Q4H PRN #60 tab PRN Reason: Pain Home Medications: Home Meds allopurinoL [Zyloprim] 300 mg PO DAILY 08/09/18 [History] hydrOXYzine HCL [hydrOXYzine] 25 mg PO BEDTIME 04/09/19 [History] Rosuvastatin [Crestor] 10 mg PO DAILY 12/05/20 [History] Acetaminophen/HYDROcodone [Oldhams 325-5 MG] 1 - 2 tab PO Q4HR PRN 12/08/20 [History] Amitriptyline HCl 100 mg PO BEDTIME 12/08/20 [History] Aspirin [Aspirin EC] 325 mg PO BID #70 tab 12/08/20 [Rx] Venlafaxine HCl [Venlafaxine ER] 300 mg PO BEDTIME 12/08/20 [History] Verapamil [Verapamil ER] 120 mg PO DAILY 12/08/20 [History] clonazePAM [Clonazepam] 1 mg PO TID 12/08/20 [History] lisinopriL [Prinivil] 40 mg PO DAILY 12/08/20 [History] methocarbamoL [Robaxin] 500 mg PO TID PRN 12/08/20 [History] oxyCODONE 5 - 10 mg PO Q4H PRN #60 tab 12/08/20 [Rx] valACYclovir [Valtrex] 1,000 mg PO DAILY PRN 12/08/20 [History] Patient Handouts: Oxycodone tablets or capsules, Aspirin, ASA oral tablets Referrals: Blayne Cadena MD [Physician] - 12/23/20 10:30 am (Siddharth, you are scheduled to followup with Dr. Cadena on December 23 at 10:30am at [facility] in [place].) - Discharge Summary/Plan Comment DC Time >30 min.: No - Patient Data Vitals - Most Recent: Last Vital Signs Temp 98.1 F 12/09/20 08:09 Pulse 82 12/09/20 08:11 Resp 16 12/09/20 08:09 BP 149/84 H 12/09/20 08:12 Pulse Ox 95 12/09/20 09:49 Weight - Most Recent: 259 lb 3.2 oz Med Orders - Current: Current Medications Discontinued Medications Acetaminophen (Acetaminophen 325 Mg Tab) 975 mg PO ONETIME RANDY Stop: 12/08/20 12:01 Last Admin: 12/08/20 06:21 Dose: 975 mg Documented by: Acetaminophen (Acetaminophen 325 Mg Tab) 650 mg PO Q6H PRN PRN Reason: Pain Last Admin: 12/09/20 06:36 Dose: 650 mg Documented by: Albuterol (Albuterol 0.083% 2.5 Mg/3 Ml Neb Soln) 2.5 mg NEB ONETIME PRN PRN Reason: Smoker Stop: 12/08/20 16:00 Allopurinol (Allopurinol 300 Mg Tab) 300 mg PO DAILY [facility] Last Admin: 12/09/20 08:11 Dose: 300 mg Documented by: Amitriptyline HCl (Amitriptyline 25 Mg Tab) 100 mg PO BEDTIME [facility] Last Admin: 12/08/20 20:11 Dose: 100 mg Documented by: Artificial Tears (Carboxymethylcellulose Sodium 1% Ophth Gel 15 Ml Bottle) 0 ml EYEBOTH QID PRN PRN Reason: Dry Eyes Last Admin: 12/08/20 22:12 Dose: 1 drop Documented by: Aspirin (Aspirin 325 Mg Tab.Ec) 325 mg PO BID [facility] Last Admin: 12/09/20 08:11 Dose: 325 mg Documented by: Bisacodyl (Bisacodyl 5 Mg Tab) 5 mg PO DAILY PRN PRN Reason: Constipation Cefazolin Sodium (Cefazolin 1 Gm Vial) Confirm Administered Dose 2 gm .ROUTE .STK-MED ONE Stop: 12/08/20 06:49 Clonazepam (Clonazepam 1 Mg Tab) 1 mg PO TID [facility] Last Admin: 12/09/20 08:11 Dose: 1 mg Documented by: Morphine Sulfate 8 mg/Epinephrine HCl 0.3 mg/Cefuroxime Sodium 750 mg/Ketorolac Tromethamine 30 mg/Sodium Chloride 7.9 ml 0 mg .XX ASDIRECTED PRN PRN Reason: Pain Stop: 12/08/20 13:00 Last Admin: 12/08/20 10:27 Dose: 788.3 mg Documented by: Cyclobenzaprine HCl (Cyclobenzaprine 10 Mg Tab) 10 mg PO TID PRN PRN Reason: Spasms Last Admin: 12/09/20 00:24 Dose: 10 mg Documented by: Dexamethasone (Dexamethasone 4 Mg/Ml 5 Ml Mdv) Confirm Administered Dose 20 mg .ROUTE .STK-MED ONE Stop: 12/08/20 06:44 Dexmedetomidine HCl (Dexmedetomidine 200 Mcg/2 Ml Sdv) Confirm Administered Dose 200 mcg .ROUTE .STK-MED ONE Stop: 12/08/20 07:47 Docusate Sodium (Docusate Sodium 100 Mg Cap) 100 mg PO BID [facility] Last Admin: 12/09/20 08:10 Dose: 100 mg Documented by: Famotidine (Famotidine 20 Mg Tab) 20 mg PO Q12H [facility] Last Admin: 12/09/20 08:11 Dose: 20 mg Documented by: Fentanyl (Fentanyl 100 Mcg/2 Ml Sdv) Confirm Administered Dose 100 mcg .ROUTE .STK-MED ONE Stop: 12/08/20 06:43 Fentanyl (Fentanyl 100 Mcg/2 Ml Sdv) 50 mcg IVPUSH Q5M PRN PRN Reason: Pain Stop: 12/08/20 18:00 Last Admin: 12/08/20 11:48 Dose: 50 mcg Documented by: Fentanyl (Fentanyl 100 Mcg/2 Ml Sdv) Confirm Administered Dose 100 mcg .ROUTE .STK-MED ONE Stop: 12/08/20 11:47 Last Admin: 12/08/20 15:00 Dose: Not Given Documented by: Hydromorphone HCl (Hydromorphone 1 Mg/Ml Syringe) Confirm Administered Dose 1 mg .ROUTE .STK-MED ONE Stop: 12/08/20 09:43 Hydromorphone HCl (Hydromorphone 0.5 Mg/0.5 Ml Syringe) 0.5 mg IVPUSH Q10M PRN PRN Reason: Pain (severe 7-10) Stop: 12/08/20 18:00 Last Admin: 12/08/20 12:12 Dose: 0.5 mg Documented by: Hydroxyzine HCl (Hydroxyzine Hcl 25 Mg Tab) 25 mg PO BEDTIME [facility] Last Admin: 12/08/20 20:10 Dose: 25 mg Documented by: Lactated Ringer's (Ringers, Lactated) 1,000 mls @ 125 mls/hr IV ASDIRECTED [facility] Stop: 12/08/20 23:00 Last Admin: 12/08/20 06:40 Dose: 125 mls/hr Documented by: Lidocaine HCl (Xylocaine-Mpf 1%) Confirm Administered Dose 4 mls @ as directed .ROUTE .STK-MED ONE Stop: 12/08/20 06:43 Sodium Chloride (Normal Saline) Confirm Administered Dose 100 mls @ as directed .ROUTE .STK-MED ONE Stop: 12/08/20 07:47 Lactated Ringer's (Ringers, Lactated) Confirm Administered Dose 1,000 mls @ as directed .ROUTE .STK-MED ONE Stop: 12/08/20 09:46 Lactated Ringer's (Ringers, Lactated) Confirm Administered Dose 1,000 mls @ as directed .ROUTE .STK-MED ONE Stop: 12/08/20 09:46 Lactated Ringer's (Ringers, Lactated) Confirm Administered Dose 1,000 mls @ as directed .ROUTE .STK-MED ONE Stop: 12/08/20 10:37 Cefazolin Sodium/Dextrose 2 gm (/ Premix) 50 mls @ 100 mls/hr IV Q8H [facility] Stop: 12/09/20 07:29 Last Admin: 12/09/20 06:34 Dose: 100 mls/hr Documented by: Ketamine HCl (Ketamine 500 Mg/10 Ml Mdv) Confirm Administered Dose 500 mg .ROUTE .STK-MED ONE Stop: 12/08/20 06:43 Ketorolac Tromethamine (Ketorolac 15 Mg/Ml Sdv) Confirm Administered Dose 15 mg .ROUTE .STK-MED ONE Stop: 12/08/20 06:44 Ketorolac Tromethamine (Ketorolac 15 Mg/Ml Sdv) 15 mg IVPUSH Q6H PRN PRN Reason: Pain Last Admin: 12/08/20 15:51 Dose: 15 mg Documented by: Lidocaine/Sodium Bicarbonate (Lidocaine 1%/Sod Bicarbonate In Ns 8.4% 1 Ml Syringe) 0.25 ml IDERM ONETIME PRN PRN Reason: Prior to IV Start Stop: 12/08/20 18:00 Last Admin: 12/08/20 06:40 Dose: 0.25 ml Documented by: Lisinopril (Lisinopril 20 Mg Tab) 40 mg PO DAILY [facility] Last Admin: 12/09/20 08:12 Dose: 40 mg Documented by: Magnesium Hydroxide (Magnesium Hydroxide 400 Mg/5 Ml Susp 30 Ml Cup) 30 ml PO BID PRN PRN Reason: Constipation Midazolam HCl (Midazolam 1 Mg/Ml 2 Ml Sdv) Confirm Administered Dose 2 mg .ROUTE .STK-MED ONE Stop: 12/08/20 06:43 Morphine Sulfate (Morphine 2 Mg/Ml Syringe) 2 mg IVPUSH Q2H PRN PRN Reason: Breakthrough Pain Naloxone HCl (Naloxone 0.4 Mg/Ml Sdv) 0.1 mg IVPUSH Q5M PRN PRN Reason: Oversedation Ondansetron HCl (Ondansetron 4 Mg/2 Ml Sdv) Confirm Administered Dose 4 mg .ROUTE .STK-MED ONE Stop: 12/08/20 06:44 Ondansetron HCl (Ondansetron 4 Mg/2 Ml Sdv) 4 mg IVPUSH Q6H PRN PRN Reason: Nausea/Vomiting Ondansetron HCl (Ondansetron 4 Mg/2 Ml Sdv) 4 mg IVPUSH ONETIME PRN PRN Reason: Nausea/Vomiting Stop: 12/08/20 18:00 Oxycodone HCl (Oxycodone Er 10 Mg Tab.Er) 10 mg PO ONETIME [facility] Stop: 12/08/20 12:01 Last Admin: 12/08/20 06:21 Dose: 10 mg Documented by: Oxycodone HCl (Oxycodone 5 Mg Tab) 5 - 15 mg PO Q4H PRN PRN Reason: Pain Last Admin: 12/09/20 10:45 Dose: 5 mg Documented by: Oxycodone HCl (Oxycodone 5 Mg Tab) 5 - 10 mg PO Q4H PRN PRN Reason: Pain Last Admin: 12/08/20 12:32 Dose: 10 mg Documented by: Pregabalin (Pregabalin 25 Mg Cap) 50 mg PO ONETIME [facility] Stop: 12/08/20 12:01 Last Admin: 12/08/20 06:21 Dose: 50 mg Documented by: Propofol (Propofol 200 Mg/20 Ml Sdv) Confirm Administered Dose 600 mg .ROUTE .STK-MED ONE Stop: 12/08/20 06:42 Propofol (Propofol 200 Mg/20 Ml Sdv) Confirm Administered Dose 200 mg .ROUTE .STK-MED ONE Stop: 12/08/20 09:30 Propofol (Propofol 200 Mg/20 Ml Sdv) Confirm Administered Dose 200 mg .ROUTE .STK-MED ONE Stop: 12/08/20 09:48 Propofol (Propofol 200 Mg/20 Ml Sdv) Confirm Administered Dose 200 mg .ROUTE .STK-MED ONE Stop: 12/08/20 10:19 Rosuvastatin Calcium (Rosuvastatin 10 Mg Tab) 10 mg PO DAILY [facility] Last Admin: 12/09/20 08:11 Dose: 10 mg Documented by: Senna (Sennosides 8.6 Mg Tab) 8.6 mg PO BID PRN PRN Reason: Constipation Sodium Chloride (Sodium Chloride 0.9% 10 Ml Syringe) 10 ml FLUSH ASDIRECTED PRN PRN Reason: Keep Vein Open Stop: 12/08/20 18:00 Tranexamic Acid (Tranexamic Acid 1,000 Mg/10 Ml Amp) Confirm Administered Dose 1,000 mg .ROUTE .STK-MED ONE Stop: 12/08/20 06:48 Last Admin: 12/08/20 10:27 Dose: 1,000 mg Documented by: Vancomycin HCl (Vancomycin 1 Gm Sdv) Confirm Administered Dose 1 gm .ROUTE .STK- MED ONE Stop: 12/08/20 06:48 Last Admin: 12/08/20 10:27 Dose: 1 gm Documented by: Venlafaxine HCl (Venlafaxine 75 Mg Cap.Er) 300 mg PO DAILY [facility] Venlafaxine HCl (Venlafaxine 75 Mg Cap.Er) 300 mg PO BEDTIME [facility] Last Admin: 12/08/20 20:11 Dose: 300 mg Documented by: Verapamil HCl (Verapamil 120 Mg Cap.Er) 120 mg PO DAILY [facility] Last Admin: 12/09/20 08:11 Dose: 120 mg Documented by:
--- NOTE | 2020-12-19 07:28 | PCM.OPNOTE ---
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
--- NOTE | 2020-12-19 10:07 | OR ---
DATE OF OPERATION: 12/08/2020 SURGEON: Blayne Cadena MD OPERATION PERFORMED: Revision of right total hip arthroplasty femoral stem and acetabular liner. PREOPERATIVE DIAGNOSIS: Painful right total hip arthroplasty. POSTOPERATIVE DIAGNOSIS: Painful right total hip arthroplasty. ANESTHESIA: Local MAC with spinal. ANESTHESIA PROVIDER: Letty Beth. ASSISTANTS: Amy Jaeger PA-C and Danelle Machado LPN. ESTIMATED BLOOD LOSS: 1200 mL. COMPLICATIONS: None. CONDITION: Stable. IMPLANTS: 1. Vika size 23 x 155 Shinto Modular stem. 2. Vika size 25 +10 proximal cone body. 3. Vika size 28/42, +0 MDM components. DESCRIPTION OF PROCEDURE: The patient was identified in the preoperative holding area. Proper site was marked and identified by the surgeon. The patient was taken back to the operating theater where after adequate anesthesia, the patient was placed in a left lateral decubitus position. Axillary roll was placed. were well padded. The patient's right hip was then sterilely prepped and draped in the usual sterile fashion. OR time-out was performed. The patient received 2 g IV Ancef. Standard posterior incision utilizing the previous incision was utilized. This was taken down to the IT band and gluteal fascia, which was incised along the incisional length. Charnley retractor was then placed on greater tuberosity to take down the short external rotator making sure the as well as there were no signs of infection. No real fluid in the joint. At this time, I was able to locate the hip and remove the previous mm. At this time, I cleared soft tissue and bony around the stem. it was well fixed at this point. again the flexible osteotome and Steinmann pin around and backslapped to remove the stem with no and minimal bone loss. At this time, reamers were utilized for the Shinto Modular 20. It felt like it had good area of the stem. I did try to impact the 20 down fairly easily, so at this time, we removed that and reamed up to 23. The 23 then was found to have . This was then unable to be backslapped. At this time, a small trial body was placed. First trialed with 25 +10, and there was adequate rastafarian of leg lengths with a 28 +0 MDM trial components. The hip was relocated. The patient was stable throughout range of motion to dislocate the hip. The proximal body was then opened, and the version was set, and then the screw was tightened. The 28 +0 MDM components were constructed on the back table, impacted onto the stem. Before this, we had removed the 36+ liner. This was revision. We converted to 36+ liner, removed the acetabular, and replaced with an MDM liner instead. When the hip was relocated, we took radiographs intraoperatively, which showed a well-seated stem with no signs or perforation of the cortex. At this time, 1 L pulse lavage irrigation with Ancef was irrigated through the hip along with 400 mL of IrriSept irrigation. Topical tranexamic acid and vancomycin powder were applied. #5 Ethibond suture was used for closure of the short external rotators and capsule that remained. Periarticular injection was completed. #2 barbed suture used for closure of the IT band and gluteal fascia. 2-0 Vicryl was used subcutaneously. Prineo was used for closure of the skin. The patient was placed in a sterile Mepilex dressing and was sent to the PACU in stable condition. MMODAL /[id number]
--- NOTE | 2020-12-23 10:01 | OR ---
DATE OF OPERATION: 12/08/2020 SURGEON: Blayne Cadena MD OPERATION PERFORMED: Revision of right total hip arthroplasty femoral stem and acetabular liner. PREOPERATIVE DIAGNOSIS: Painful right total hip arthroplasty. POSTOPERATIVE DIAGNOSIS: Painful right total hip arthroplasty. ANESTHESIA: Local MAC with spinal. ANESTHESIA PROVIDER: Letty Beth. ASSISTANTS: Amy Jaeger PA-C and Danelle Machado LPN. ESTIMATED BLOOD LOSS: 200 mL. COMPLICATIONS: None. CONDITION: Stable. IMPLANTS: 1. [place] size 23 x 155 Taoism Modular stem. 2. [place] size 25 +10 proximal cone body Taoism Modular. 3. Vika size 28/42, +0 MDM components. 4. Vika acetabular MDM liner. DESCRIPTION OF PROCEDURE: The patient was identified in the preoperative holding area. Proper site was marked and identified by the surgeon. The patient was taken back up to the operating theater where after adequate anesthesia, the patient was placed in a left lateral decubitus position. Axillary roll was placed. The patient's gluteal fold was parallel to the floor. Pegs were then placed and well padded. The patient's right hip was then sterilely prepped and draped in the usual sterile fashion. OR wide time-out was performed. The patient received 2 g of IV Ancef. The previous incision was utilized. This was then taken down to the IT band and gluteal fascia, which was incised along the incisional length. Charnley retractor was then placed. At this time, takedown of the capsular repair as well as short external rotators were done from the posterior rim of the greater trochanter all the way down to the hip joint. Hip joint was identified. There were no signs of infection. Very minimal fluid at this time. The hip was then dislocated, and the previous 36 +0 head was impacted off. The patient was noted to have well-fixed stem when I was able to thread it in, and so we did flexible osteotomes as well as Steinmann pins around the hip stem to try to get it loose, but it was still well fixed. At this time, the Steinmann pins and the osteotomes were used again, and I was able to impact the stem out of the femur. At this time, attention was turned to the acetabulum. I was able to remove the acetabular liner and put in an MDM acetabular liner after debridement around the acetabulum. Attention was turned back to the femur. At this time, I was able to ream up to a 20 for a 20 Taoism Modular stem. We did try to impact this into place, but it was found to not be well fixed, so I was then able to ream up to a 23, 23 was found to have adequate fixation, and a 23 x 155 Taoism Modular stem was then impacted into place and found to be adequate. At this time, the proximal cone body was found to be a +10. We did ream out laterally to a 25 for the proximal cone body. The trial proximal cone body was then placed at +10. The patient had adequate presybeterian of leg lengths with a 28 +0 MDM trial and no instability noted throughout. At this time, the trials were removed. The 25 +10 proximal cone body was then impacted into place, and the screw was tightened in the proper anteversion, which was held. We did get radiographs on the table to make sure that the distal stem had good fixation, and it was shown to have good fixation. The 28/42 MDM components were then constructed and impacted onto the stem. Hip was then relocated. #5 Ethibond suture was used for closure of the capsule. 1 L of pulse lavage irrigation with Ancef was irrigated through the hip along with 400 mL of IrriSept irrigation. Topical tranexamic acid and vancomycin powder were applied. A #2 barbed suture was used for closure of the IT band and gluteal fascia. 2-0 Vicryl was used subcutaneously, and Prineo was used for closure of the skin. The patient tolerated the procedure well and was sent to PACU in stable condition. MMODAL /[id number]
== END 2020-12-09 11:24 | disposition home or self-care (01) ==
LOC: JD.SDS 06:20 → JD.MS 10:54
PROVIDERS: ADMIT Orthopaedic Surgery; ATTEND Orthopaedic Surgery
DX: T84.84XA Pain due to internal orthopedic prosthetic devices, implants and grafts, initial encounter (principal); I10 Essential (primary) hypertension; G47.33 Obstructive sleep apnea (adult) (pediatric); E78.5 Hyperlipidemia, unspecified; M10.9 Gout, unspecified; Z87.891 Personal history of nicotine dependence; E78.00 Pure hypercholesterolemia, unspecified; F33.9 Major depressive disorder, recurrent, unspecified; E66.9 Obesity, unspecified; Z68.36 Body mass index [BMI] 36.0-36.9, adult; Z79.82 Long term (current) use of aspirin; Z79.899 Other long term (current) drug therapy; Z98.890 Other specified postprocedural states
CPT/HCPCS: 01210; 36415; 73501-26-RT; 73501-RT; 76000; 76000-26; 80053; 85027; 85610; 85730; 86850; 86900; 86901; 87641; 94762; 97110-GP; 97161-GP; 97530-GP; A9270-GY; C1713; C1776; G0378; J0171; J0690; J0697; J1100; J1170; J1885; J2250; J2270; J2405; J2704; J3010; J3370; J7120

== ENCOUNTER 2021-01-13 03:36 | Emergency (ER) | payer MEDICAID ==
--- NOTE | 2021-01-13 04:02 | EDM.PDOC ---
ED HPI GENERAL MEDICAL PROBLEM - General Chief Complaint: Lower Extremity Injury/Pain Stated Complaint: HIP PAIN Time Seen by Provider: 01/13/21 03:54 - History of Present Illness INITIAL COMMENTS - FREE TEXT/NARRATIVE: 60-year-old male presents the emergency room with pain. Patient states he has right and left hip pain severe left hip pain at this time and bad left knee pain as well. Patient appears quite angry cussing and blaming other healthcare providers for his condition. He tried to explain his situation. I was considering sending the patient home with a few hydrocodone until he could get into see his orthopedic surgeon. At this hour the only way I can dispense hydrocodone is through the [facility] machine. I asked the patient if he had a working debit or credit card, and the patient became quite offended with this. He demanded that since he had Medicaid we had to give him everything. I tried to inform him it is the only option I have at this hour. I was called out of the room as a outside consulting physician was returning my phone call. And during that time the patient got up and left. Left Hip Pain Score (Numeric/FACES): 10 Left Knee Pain Score (Numeric/FACES): 10 - Related Data Allergies Allergy/AdvReac Type Severity Reaction Status Date / Time No Known Allergies Allergy Verified 01/13/21 03:51 Home Meds: Home Meds allopurinoL [Zyloprim] 300 mg PO DAILY 08/09/18 [History] hydrOXYzine HCL [hydrOXYzine] 25 mg PO BEDTIME 04/09/19 [History] Rosuvastatin [Crestor] 10 mg PO DAILY 12/05/20 [History] Acetaminophen/HYDROcodone [[place] 325-5 MG] 1 - 2 tab PO Q4HR PRN 12/08/20 [History] Amitriptyline HCl 100 mg PO BEDTIME 12/08/20 [History] Aspirin [Aspirin EC] 325 mg PO BID #70 tab 12/08/20 [Rx] Venlafaxine HCl [Venlafaxine ER] 300 mg PO BEDTIME 12/08/20 [History] Verapamil [Verapamil ER] 120 mg PO DAILY 12/08/20 [History] clonazePAM [Clonazepam] 1 mg PO TID 12/08/20 [History] lisinopriL [Prinivil] 40 mg PO DAILY 12/08/20 [History] methocarbamoL [Robaxin] 500 mg PO TID PRN 12/08/20 [History] oxyCODONE 5 - 10 mg PO Q4H PRN #60 tab 12/08/20 [Rx] valACYclovir [Valtrex] 1,000 mg PO DAILY PRN 12/08/20 [History] Past Medical History HEENT History: Reports: Impaired Vision Cardiovascular History: Reports: High Cholesterol, Hypertension Other Cardiovascular History: chest pain Respiratory History: Reports: Sleep Apnea Gastrointestinal History: Reports: Chronic Constipation, Hemorrhoids Other Gastrointestinal History: left inguinal hernia Genitourinary History: Reports: Renal Calculus, Other (See Below) Other Genitourinary History: erectle dysfunction [employer] History: Reports: None Musculoskeletal History: Reports: Arthritis, Back Pain, Chronic, Gout Other Musculoskeletal History: right wrist sprain, hand fracture right Neurological History: Reports: Headaches, Chronic Other Neuro History: tremors, vertebrae fracture, peripheraly polyneuropathy, cervical spinal stenosis Psychiatric History: Reports: Anxiety Other Psychiatric History: insomnia, grief, patient denies depression at this time Endocrine/Metabolic History: Reports: Obesity/BMI 30+ Hematologic History: Reports: None Immunologic History: Reports: None Oncologic (Cancer) History: Reports: None Dermatologic History: Reports: Other (See Below) Other Dermatologic History: herpes virus, karatosis, senile hyperkeratosis, , cold sores, folliculitis - Infectious Disease History Infectious Disease History: Reports: Herpes - Past Surgical History Cardiovascular Surgical History: Reports: None GI Surgical History: Reports: Colonoscopy, Hernia Repair/Other Other GI Surgeries/Procedures: zach Other Female Surgeries/Procedures: erectile dysfuntion, frequency Musculoskeletal Surgical History: Reports: Carpal Tunnel, Hip Replacement, Knee Replacement Other Musculoskeletal Surgeries/Procedures:: 5th metacarpal, right hand sprain, gout, mucous cyst, neck pain Social & Family History - Family History Family Medical History: No Pertinent Family History Other HEENT Family History: hx of cancer in family - Caffeine Use Caffeine Use: Reports: Coffee Other Caffeine Use: occasionally Caffeine Use Comment: Drinks iced coffee, and reports he drinks maybe 2 cups of coffee in two weeks - Living Situation & Occupation Living situation: Reports: , Other (Going through a divorce at this point time) 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) Review of Systems - Review of Systems Review Of Systems: See Below Reason Not Obtained: Patient left before this could be obtained ED EXAM, GENERAL - Physical Exam Exam: See Below Reason Not Obtained: Patient left before this could be obtained Course - Vital Signs Last Recorded V/S: Last Vital Signs Temp 36.2 C 01/13/21 03:47 Pulse 71 01/13/21 03:47 Resp 18 01/13/21 03:47 BP 152/97 H 01/13/21 03:47 Pulse Ox 99 01/13/21 03:47 Departure - Departure Time of Disposition: 04:06 Disposition: Eloped 07 Clinical Impression: Chronic pain - Discharge Information Forms: ED Department Discharge Sepsis Event Note (ED) - Evaluation Sepsis Screening Result: No Definite Risk - Focused Exam Vital Signs: Vital Signs Temp Pulse Resp BP Pulse Ox 01/13/21 03:47 36.2 C 71 18 152/97 H 99
== END 2021-01-13 04:12 | disposition left against medical advice (07) ==
LOC: JD.ED 03:36
DX: G89.29 Other chronic pain (principal); M25.552 Pain in left hip; E78.00 Pure hypercholesterolemia, unspecified; I10 Essential (primary) hypertension; E66.9 Obesity, unspecified; Z68.30 Body mass index [BMI] 30.0-30.9, adult; Z79.82 Long term (current) use of aspirin; Z79.899 Other long term (current) drug therapy
CPT/HCPCS: 99283

== ENCOUNTER 2022-04-16 16:20 | Emergency (ER) | payer MEDICAID ==
[2022-04-16] MEDS ORDERED: Sodium Chloride 0.9% 10 ML Syringe FLUSH PRN ×2 (16:26→16:30)
[2022-04-16] MEDS ORDERED: Aspirin 81 MG Tab.Chew PO ONE (16:26)
[2022-04-16] MEDS ORDERED: HYDROmorphone 1 MG/ML Syringe IVPUSH ONE (16:27)
[2022-04-16] MEDS ORDERED: Famotidine 20 MG/2 ML SDV IVPUSH ONE (16:28)
[2022-04-16] MEDS ORDERED: Iopamidol 612 MG/ML 100 ML Bottle IVPUSH ONE ×2 (16:30→17:32)
[2022-04-16] MEDS ORDERED: Sodium Chloride 0.9% 1,000 ML IV SCH (16:30)
== END 2022-04-16 19:31 | disposition home or self-care (01) ==
LOC: JD.ED 16:20
DX: R07.89 Other chest pain (principal); R10.10 Upper abdominal pain, unspecified; E78.00 Pure hypercholesterolemia, unspecified; I10 Essential (primary) hypertension; E66.9 Obesity, unspecified; Z68.38 Body mass index [BMI] 38.0-38.9, adult; Z79.899 Other long term (current) drug therapy; Z79.82 Long term (current) use of aspirin
CPT/HCPCS: 36415; 71045; 74177; 80053; 83690; 84484; 85025; 86140; 93005; 96374; 96375; 99285; A9270; J1170; J3490; J7030; Q9967